=== PATIENT | male | born 1955 | race African-American/Black ===

== ENCOUNTER 2017-03-05 18:38 | Inpatient (IN) ==
[2017-03-05] MEDS ORDERED: ONDANSETRON 4 MG/2 ML VIAL IV STA (19:03)
[2017-03-05] MEDS ORDERED: PANTOPRAZOLE 40 MG VIAL IV STA (19:03)
--- NOTE | 2017-03-05 19:07 | Emergency Department Note ---
Arrival - Arrival Chief Complaint: GI Bleed/Rectal Stated Complaint: gi bleed ED Nursing Triage Note: pt reports black stools for two days. Mode of Arrival: Stretcher Limitations: No Limitations Source: Patient Time Seen by Provider: 03/05/17 19:03 - History of Present Illness HPI Narrative: This 61-year-old black male new to the community presents on transfer from [place] with 3 days of black tarry bowel movements not associated with nausea, vomiting, diarrhea, bright red blood per rectum, abdominal pain, history of peptic ulcer disease, reflux, diverticulitis, or colitis. He does not report any use of iron tablets or Pepto-Bismol recently and no complaints of chest pain or shortness of breath associated with this as well. Additionally he had markedly abnormal renal function laboratory values and denies a history of prior renal disease. Currently appears in no acute medical distress Onset (ago): day(s) (Patient presents 3 days post onset of symptoms) Allergies/Adverse Reactions: Allergies Allergy/AdvReac Type Severity Reaction Status Date / Time hydrochlorothiazide Allergy EYE Verified 03/05/17 18:49 SWELLING Review of System - Review of System 12 point system: reviewed and no additional remarkable complaints except as stated - Review of System Constitutional: Present: as per HPI Respiratory: Present: as per HPI Cardiovascular: Present: as per HPI Gastrointestinal: Present: as per HPI Genitourinary male: Present: as per HPI Medical,Surgical,& Family Hx - Medical History Cardio: History of: Hypertension Endocrine: History of: Diabetes Mellitus (NIDDM) Respiratory: History of: Pulmonary Embolism, Lung Cancer Gastrointestinal: History of: Gastrointestinal Bleed - Surgical History Thoracic Surgeries: Surgical HX of;: Lobectomy (left upper lobe) - Social History Smoking Status: Unknown if ever smoked Exam Physical Examination: GENERAL: Obese black male in no acute distress. HEENT: Normocephalic. No trauma. Moist mucous membranes. EOMI. PERRLA. ENT NML NECK: Supple. No adenopathy. CARDIAC: Regular. No murmurs. Heart rate 98 CHEST: Clear to auscultation. No respiratory distress. O2 sat 98% ABDOMEN: Soft. Nontender. Active bowel sounds. Benign abdomen at the moment EXTREMITIES: No trauma. Normal ROM. No pedal edema. SKIN: No diaphoresis. No rash. NEURO: Alert. Neuro intact. No focal deficits. Vital Signs: Vital Signs Temperature 97.4 F L 03/05/17 18:38 Pulse Rate 98 H 03/05/17 18:38 Respiratory Rate 22 03/05/17 18:38 Blood Pressure 107/54 03/05/17 18:38 O2 Sat by Pulse Oximetry 98 03/05/17 18:38 Course - Reevaluation(s) Reevaluation #1: Advised patient he would have to be admitted to evaluate his bleeding and his renal dysfunction. - Consultations Consultation #1: Discussed with the hospitalist service who will admit for further evaluation and treatment. Results - Labs CBC & BMP: 03/05/17 19:35 Labs: Lab from [facility] glucose 106, BUN 103, creatinine 3.5, sodium 143, potassium 4.8 , hematocrit 21, white blood count 8.8, normal clotting studies - Impressions EKG sinus rhythm at 94 with normal DC interval and QRS duration. Diffuse low voltage with nonspecific ST changes but no acute injury pattern. Disposition Clinical Impression: GI hemorrhage, Acute renal insufficiency Case discussed with: patient Disposition: Still a Patient Condition: Guarded Time of Disposition: 20:09
[2017-03-05] MEDS ORDERED: PANTOPRAZOLE 40 MG VIAL IV ONE (19:19)
[2017-03-05] MEDS ORDERED: ONDANSETRON 4 MG/2 ML VIAL ONE (19:19)
[2017-03-05 19:40] LABS: Basophils % 0.2 % (0.0-0.8); Eosinophils # 0.2 10*3/uL (0.0-0.87); Eosinophils % 2.2 % (0.00-10.9); Immature Granulocytes % 1.1 %; Immature Granulocytes Absolute 0.09 #; Lymphocytes # 1.7 10*3/uL (1.4-4.0); Lymphocytes % 20.5 % (21.2-54.2); Mean Corpuscular Hemoglobin 27 PG (27-34); Mean Corpuscular Volume 88.2 FL (87-102); Mean Platelet Volume 11.4 FL (9.6-12.0); Monocytes # 0.8 10*3/uL (0.11-0.8); Monocytes % 10.2 % (1.7-12.7); NRBC # 0.04 10*3/uL; Neutrophils # 5.4 10*3/uL (1.4-7.4); Neutrophils % 65.8 % (38.7-73.9); Platelet Count 159 T/CUMM (130-400); Red Blood Count 2.38 MC/CUMM (3.8-5.5); Red Cell Distribution Width 19.3 % (9.3-17.3); White Blood Count 8.2 T/CUMM (4-12)
[2017-03-05 19:49] LABS: Hemoglobin 6.5 GM/DL (14.0-18.0)
[2017-03-05] MEDS ORDERED: SODIUM CHLORIDE 0.9% 1,000 ML IV STA (19:49)
[2017-03-05 20:08] LABS: Alanine Aminotransferase 18 U/L (16-61); Albumin 3.1 G/DL (3.4-5.0); Alkaline Phosphatase 34 U/L (45-117); Aspartate Amino Transferase 16 U/L (0-37); Bilirubin,Total < 0.39 MG/DL (0.2-1.0); Blood Urea Nitrogen 89 MG/DL (7-18); Glucose 102 MG/DL (74-106); Potassium 3.9 MMOL/L (3.5-5.1); Sodium 143 MMOL/L (136-145); Total Protein 5.6 G/DL (6.4-8.3); Troponin I Only < 0.015 NG/ML (0.00-0.045)
[2017-03-05 20:13] LABS: Calcium 5.2 MG/DL (8.5-10.1)
[2017-03-05] MEDS ORDERED: CALCIUM GLUCONATE 2,000 MG in SODIUM CHLORIDE 0.9% 100 ML IV ONE (20:46)
[2017-03-05 20:48] LABS: INR 3.7; Partial Thromboplastin Time 33.8 SECS (0-40)
[2017-03-05] MEDS ORDERED: DEXTROSE 50% 25 GM/50 ML VIAL IV PRN (20:48)
[2017-03-05] MEDS ORDERED: GLUCAGON 1 MG VIAL IM PRN (20:48)
[2017-03-05 20:49] LABS: PT Patient Result 42.4 SECS
--- NOTE | 2017-03-05 20:54 | Hospitalist History & Physical ---
Assessment and Plan - Time spent with patient Time spent with patient: Greater than 30 minutes (1) Melena Status: Acute Assessment and plan: Hold the patient's anticoagulation and placement of PPI. Keep him n.p.o. and obtain H&H's every 4 hours. Consult GI Current Visit: Yes (2) Chronic anticoagulation Status: Acute Assessment and plan: This may be secondary to paroxysmal atrial fibrillation versus continuation from prior blood clot. States he has only had one blood clot total. We will have to clarify with his PCP. Current Visit: Yes (3) Symptomatic anemia Status: Acute Assessment and plan: See above. Current Visit: Yes (4) Hypocalcemia Status: Acute Assessment and plan: We will administer calcium. Current Visit: Yes (5) Acute kidney injury Status: Acute Assessment and plan: Hold nephrotoxic medications and hydrate. Obtain a renal ultrasound. Patient has azotemia this is likely secondary to AKA and melena. Current Visit: Yes (6) Diabetes mellitus Status: Acute Assessment and plan: Accu-Cheks and sliding scale insulin. Current Visit: Yes (7) Hypertension Status: Acute Assessment and plan: Holding home medications. Current Visit: Yes (8) Gout Status: Acute Assessment and plan: Continue medications. Current Visit: Yes (9) COPD (chronic obstructive pulmonary disease) Status: Acute Assessment and plan: Continue medications. Current Visit: Yes History of Present Illness Chief complaint: Melena History of present illness: Mr. Hernandez is a 61 year old male with a medical history of atrial fibrillation? , Congestive heart failure, COPD, hypertension, diabetes mellitus, morbid obesity, blood clot, gout presents with melena and symptomatic anemia. Patient states for the last 2-3 days he has been having shortness of breath and lower extremity weakness. He also endorses his stool has been black during this time. He states he has been on warfarin for about 2-3 years for a blood clot "behind the heart". He also states he has heard the term atrial fibrillation and may have it. He has not seen a physician in [place] and his last physician he seen was in [place]. The physician's name is Dr. Kerry Huang, phone number is [phone]. He states he presented to [facility] with these symptoms and was found to have anemia and was transferred to [facility] for high level of care. Denies chest pain, fever, chills, nausea, vomiting. Endorses melena denies bright blood per rectum or hematochezia. Denies dysuria hematuria. Allergies Allergy/AdvReac Type Severity Reaction Status Date / Time hydrochlorothiazide Allergy EYE Verified 03/05/17 18:49 SWELLING Medical,Surgical,& Family Hx - Medical History Cardio: History of: Hypertension Endocrine: History of: Diabetes Mellitus (NIDDM) Respiratory: History of: Pulmonary Embolism, Lung Cancer Gastrointestinal: History of: Gastrointestinal Bleed - Surgical History Thoracic Surgeries: Surgical HX of;: Lobectomy (left upper lobe) - Social History Smoking Status: Unknown if ever smoked 12 point system: reviewed and no additional remarkable complaints except as stated - Constitutional Constitutional: Present: lethargy, weakness. Absent: anorexia, chills, daytime sleepiness, excessive sweating, fatigue, fever(s), frequent falls, headache(s), increased appetite, night sweats, stops breathing during sleep, weight gain, weight loss - EENT Eyes: Absent: blurry vision, loss of vision Ears: Absent: decreased hearing, tinnitus Nose, mouth and throat: Absent: dysphagia, epistaxis, nasal congestion, neck mass, sore throat - Cardiovascular Cardiovascular: Present: dyspnea, dyspnea on exertion. Absent: chest pain at rest, chest pain with activity, claudication, diaphoresis, edema, radiating jaw , neck or arm pain, lightheadedness, orthopnea, palpitations - Respiratory Respiratory: Present: dyspnea. Absent: cough, hemoptysis, dyspnea on exertion, wheezing, snoring - Gastrointestinal Gastrointestinal: Present: melena. Absent: abdominal pain, bloating, coffee ground emesis, constipation, cramping, diarrhea, dyspepsia, dysphagia, heartburn , hematemesis, hematochezia, loose stools, nausea, odynophagia, vomiting, jaundice - Genitourinary Genitourinary: Absent: difficulty urinating, dysuria, nocturia, urinary frequency, urinary incontinence - Musculoskeletal Musculoskeletal: Absent: arthralgias - Neurological Neurological: Absent: abnormal gait, abnormal speech, behavioral changes, confusion, disequilibrium, dizziness, focal weakness, frequent falls, numbness, paresthesias, radicular pain, syncope, tremor(s) - Endocrine Endocrine: Present: fatigue. Absent: cold intolerance, heat intolerance, polyuria Exam - Constitutional Vitals: Period Temp Pulse Resp BP Sys/Thomas Pulse Ox Last 24 Hr 97.4 F 98 22 107/54 98 General appearance: no acute distress, morbidly obese - Head Head exam: Present: normocephalic, atraumatic - Eye Eye exam: Present: EOMI Pupils: Present: CHRISTIE - ENT ENT exam: Present: normal exam - Neck Neck exam: Present: normal inspection - Respiratory Respiratory exam: Present: clear to auscultation bilaterally. Absent: rhonchi, wheezes - Cardiovascular Cardiovascular exam: Present: regular rate and rhythm. Absent: gallop, rubs, systolic murmur - GI/Abdominal GI/Abdominal exam: Present: normal bowel sounds, soft. Absent: distended, firm , guarding, tenderness, rebound - Extremities Exam Extremities exam: Present: normal inspection. Absent: calf tenderness, edema Results - Labs CBC & BMP: 03/05/17 19:35 03/05/17 19:35 Lab Results: I have reviewed the past 24 hour labs
[2017-03-05] MEDS ORDERED: ALBUTEROL/IPRATROPIUM 3 ML NEB RESP TX PRN (21:01)
[2017-03-05] MEDS ORDERED: CALCIUM GLUCONATE 1,000 MG/10 ML VIAL IV ONE (21:16)
[2017-03-05] MEDS ORDERED: PANTOPRAZOLE INJ 80 MG in SODIUM CHLORIDE 0.9% 100 ML IV ONE (23:00)
[2017-03-05] MEDS ORDERED: SODIUM CHLORIDE 0.9% 250 ML IV PRN (23:53)
[2017-03-05] MEDS: INSULIN LISPRO 100 UNIT/ML SUBCUT SCH (23:56)
--- NOTE | 2017-03-06 04:46 | EKG Report ---
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
--- NOTE | 2017-03-06 07:25 | Ultrasound Report ---
Referring Physician: Eleonora Peterson MD Exam: US renal Bilateral Date: March 05, 2017 Reason: Acute kidney insufficiency Comparison: None Technique: Grayscale and color flow Doppler images of both kidneys were obtained. Ultrasound images were captured and stored. Findings: The right kidney measures 11.4 x 5.9 x 5.4 cm, and the left kidney measures 10.1 x 5.9 x 5.8 cm. No hydronephrosis is present. There is increased echogenicity of the renal parenchyma bilaterally, which can be seen in chronic medical renal disease. There is also minimal right perinephric fluid which is nonspecific. No suspicious renal lesion is identified. Impression: 1. There is increased echogenicity of the renal parenchyma bilaterally, which can be seen in chronic medical renal disease. 2. Nonspecific minimal right perinephric fluid. PROCEDURE INTERPRETED AT [facility] Final Report Signed by: Dr. Cooper Pedroza
[2017-03-06] MEDS: INSULIN LISPRO 100 UNIT/ML SUBCUT SCH ×3 (08:46→16:34)
[2017-03-06] MEDS: ALLOPURINOL 100 MG TABLET PO SCH ×2 (09:42→21:45)
[2017-03-06 10:12] LABS: Eosinophils # 0.2 10*3/uL (0.0-0.87); Eosinophils % 2.3 % (0.00-10.9); Hemoglobin 7.3 GM/DL (14.0-18.0); Immature Granulocytes % 1.1 %; Immature Granulocytes Absolute 0.09 #; Lymphocytes # 1.1 10*3/uL (1.4-4.0); Lymphocytes % 13.7 % (21.2-54.2); Mean Corpuscular HGB Conc 31.7 GM/DL (32-36); Mean Corpuscular Hemoglobin 28 PG (27-34); Mean Corpuscular Volume 89.1 FL (87-102); Mean Platelet Volume 11.2 FL (9.6-12.0); Monocytes # 0.7 10*3/uL (0.11-0.8); Monocytes % 9.3 % (1.7-12.7); NRBC # 0.02 10*3/uL; Neutrophils # 5.9 10*3/uL (1.4-7.4); Neutrophils % 73.6 % (38.7-73.9); Platelet Count 137 T/CUMM (130-400); Red Blood Count 2.58 MC/CUMM (3.8-5.5); Red Cell Distribution Width 17.8 % (9.3-17.3)
[2017-03-06 10:48] LABS: Albumin 2.8 G/DL (3.4-5.0); Bilirubin,Total 0.4 MG/DL (0.2-1.0); Osmolality,Calculated 319.7 MOS/KG (273-304); Potassium 5.2 MMOL/L (3.5-5.1)
[2017-03-06 10:57] LABS: Calcium 5.4 MG/DL (8.5-10.1)
[2017-03-06] MEDS ORDERED: CALCIUM GLUCONATE IV ONE (12:52)
[2017-03-06] MEDS ORDERED: SODIUM CHLORIDE 0.9% 250 ML IV PRN (12:52)
[2017-03-06] MEDS ORDERED: SODIUM CHLORIDE 0.9% IV ONE (12:52)
--- NOTE | 2017-03-06 14:03 | Physician Query Form ---
CLICK EDIT DOCUMENT TO SELECT QUERY ANSWER --> OK --> SIGN Tali Larson RN, CCDS Certified Clinical [employer] Services Professional W) [phone] (f) [phone] [email or web address]: Make your selection(s) from the choices in EACH section by typing an "x" and enter comments in the comment section. Please use your independent medical judgment in providing your response. This request does not imply that any particular answer is desired or expected. CLINICAL INDICATORS: (Providers should not edit this section) The medical record indicates that the patient was admitted with GI bleeding, HH of 6.5/ 21.0, history of black tarry bowel movements and the patient was given 2 units of blood. Based on the above, could you clarify which of the following conditions you are evaluating, treating, and/or monitoring? (x ) Blood loss anemia (x ) acute ( ) chronic ( ) acute on chronic ( ) Acute blood loss anemia on baseline chronic anemia ( ) Acute blood loss anemia as a complication of a procedure ( ) Iron deficiency anemia not associated with blood loss ( ) Dilutional anemia due to IV fluids ( ) Anemia due to chemotherapy ( ) Anemia due to neoplastic disease ( ) Anemia due to chronic kidney disease ( ) Pernicious anemia ( ) Aplastic anemia ( ) Hemolytic anemia ( ) immune ( ) non-immune - please specify cause: ( ) Anemia due to other condition, please specify: ( ) Clinically unable to determine COMMENTS: PLEASE ALSO DOCUMENT RESPONSE IN PROGRESS NOTES AND/OR DISCHARGE SUMMARY Use of terms such as suspected, likely, or probable (associated with a specific diagnosis that is being evaluated, monitored, or treated as if it exists) are acceptable and can be restated in the discharge summary if not ruled out. MTDD
--- NOTE | 2017-03-06 14:32 | Hospitalist Progress Note ---
Assessment and Plan - Time spent with patient Time spent with patient: Greater than 30 minutes (1) Melena Status: Acute Assessment and plan: We will transfuse 2 more units. Consult GI Current Visit: Yes (2) Chronic anticoagulation Status: Acute Assessment and plan: Obtain records from PCP as to why he is on chronic anticoagulation. Current Visit: Yes (3) Symptomatic anemia Status: Acute Assessment and plan: See above. Current Visit: Yes (4) Hypocalcemia Status: Acute Assessment and plan: We will administer calcium gluconate. Current Visit: Yes (5) Acute kidney injury Status: Acute Assessment and plan: Creatinine is worsened today will consult nephrology. Current Visit: Yes (6) Diabetes mellitus Status: Acute Assessment and plan: Accu-Cheks and sliding scale insulin. Current Visit: Yes (7) Hypertension Status: Acute Assessment and plan: Holding home medications. Current Visit: Yes (8) Gout Status: Acute Assessment and plan: Continue medications. Current Visit: Yes (9) COPD (chronic obstructive pulmonary disease) Status: Acute Assessment and plan: Continue medications. Current Visit: Yes Hospitalist: Subjective Interval history: No complaints or overnight events. 2 units have been transfused. Exam - Constitutional Vitals: Period Temp Pulse Resp BP Sys/Thomas Pulse Ox Last 24 Hr 97.4 F-98.3 F 78-112 18-24 91-136/49-77 94-99 General appearance: no acute distress, morbidly obese - Head Head exam: Present: normocephalic, atraumatic - Eye Eye exam: Present: EOMI Pupils: Present: CHRISTIE - ENT ENT exam: Present: normal exam - Neck Neck exam: Present: normal inspection - Respiratory Respiratory exam: Present: clear to auscultation bilaterally. Absent: rhonchi, wheezes - Cardiovascular Cardiovascular exam: Present: regular rate and rhythm. Absent: gallop, rubs, systolic murmur - GI/Abdominal GI/Abdominal exam: Present: normal bowel sounds, soft. Absent: distended, firm , guarding, tenderness, rebound - Extremities Exam Extremities exam: Present: normal inspection. Absent: calf tenderness, edema Results - Labs CBC & BMP: 03/06/17 09:50 03/06/17 09:50 Lab Results: I have reviewed the past 24 hour labs
--- NOTE | 2017-03-06 16:12 | Gastrointestinal Consult Note ---
Assessment and Plan (1) Acute upper GI bleeding Status: Acute Assessment and plan: This patient has a history of gastric ulcer in the past with similar presentation to what he is experiencing now. This was last seen in [place], [place] at a hospital called [facility], approximately 3 years ago. It is unclear as to why he might be having nosebleed now but his INR is still elevated at 3.7 and he is gotten 2 units of packed red blood cells last night to which she responded very minimally. He has frankly black stools on physical examination we need to start reversing his anticoagulation to help with his retention of blood. We will perform upper endoscopy tomorrow if the patient has been resuscitated more completely. I note that his calcium level is quite low and will also require attention. His potassium remains elevated but I suspect this is likely due to his renal dysfunction as well as the blood being given. Will order him some Kayexalate. Current Visit: Yes (2) History of gastric ulcer Status: Acute Assessment and plan: This patient's gastric ulcer was discovered in [place]. We do not have the biopsy results from his previous upper endoscopy, but it does not sound that he was treated for Helicobacter pylori post evaluation. We will leave him on Protonix 40 mg twice daily until we can assess this further, tomorrow morning. Current Visit: Yes (3) Acute posthemorrhagic anemia Status: Acute Assessment and plan: The patient is already received 2 units packed red blood cells improving his hematocrit from 21% to 23%, he is getting another 2 unit transfusion at this time. We will give the fresh frozen plasma as well another 2 units to help out with his INR improvement. Protonix twice daily he has been written should give him adequate acid relief even though he does not feel pain I suspect this is probably feeding into his anemia. Further recommendations post upper endoscopy tomorrow. Patient was advised of the major risks involved with such procedure including but not limited to: Bleeding, infection, perforation, cardiac and pulmonary compromise. 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 Current Visit: Yes History of Present Illness Chief complaint: Melena and anemia with hematocrit down to 21%, prior history of ulcers History of present illness: Mr. Hernandez is a 61 year old male who has a history of atrial fibrillation with what sounds like a clot in his atrial appendage and was started on Coumadin in [facility] in [facility] approximately 3 years ago. The patient has been on Coumadin since that time and unfortunately started developing black stools approximately 2-3 days ago. He has had progressive weakness but no abdominal pain, nausea/vomiting, or hematemesis/decreased appetite over these last several days. The patient had a similar presentation when he developed a ulcer approximately 3 years ago as well. He had an upper endoscope done at that time, and they were able to close the ulcer by report. This may require a Hemoclip. Patient states that he is also had a colonoscopy sometime in the last 2 years and that he was not found to have any polyps. This also was done in [place]. At this time is presenting with worsening renal failure with a creatinine that has increased from 3.2-->4.3 and a decrease in his hematocrit presenting now with an blood count of 21%, he is getting 2 units of packed red blood cells at this time. With his Coumadin his INR is up to 3.7. Presumably due to his renal dysfunction his calcium is down to 5.4. This is being replaced at this time. He does not have any other specific GI complaints. He does not have diarrhea or constipation and as mentioned previously his appetite is adequate. 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 He denies bright red blood per rectum. He does not complain of any fevers or chills. Home Medications Medication Instructions Recorded Confirmed Type Atorvastatin [Lipitor] 40 mg PO DAILY 03/06/17 03/06/17 History Calcium Carbonate Chew [Tums] 2 tablet PO BID 03/06/17 03/06/17 History Digoxin Tab [Lanoxin Tab] 0.125 mg PO DAILY 03/06/17 03/06/17 History Fluticasone/Salmeterol 250-50 1 puff INH BID 03/06/17 03/06/17 History [Advair 250-50] Furosemide 40 mg PO QAM 03/06/17 03/06/17 History Furosemide Tab [Lasix Tab] 20 mg PO QPM 03/06/17 03/06/17 History Lisinopril 40 mg PO DAILY 03/06/17 03/06/17 History Magnesium Oxide 400 mg PO DAILY 03/06/17 03/06/17 History Metformin HCl 500 mg PO BID 03/06/17 03/06/17 History Metoprolol Tartrate 25 mg PO TID 03/06/17 03/06/17 History Pantoprazole Tab [Protonix Tab] 40 mg PO DAILY 03/06/17 03/06/17 History Ranitidine Tab [Zantac Tab] 150 mg PO BID 03/06/17 03/06/17 History Terazosin [Hytrin] 2 mg PO BEDTIME 03/06/17 03/06/17 History Tiotropium Inhalation [Spiriva 18 mcg INH DAILY 03/06/17 03/06/17 History Handihaler] Warfarin Sodium 6 mg PO DIRECTED MDD see 03/06/17 03/06/17 History patient comments Allergies Allergy/AdvReac Type Severity Reaction Status Date / Time hydrochlorothiazide Allergy Intermediate EYE Verified 03/06/17 01:55 SWELLING Medical,Surgical,& Family Hx - Medical History Cardio: History of: Hypertension Neurology: No history of: Brain Aneurysm, Cerebral Hemorrhage, Cerebrovascular Accident , Cerebral Palsy, Dementia, Migraine, Multiple Sclerosis, Parkinson's Disease, Peripheral Neuropathy, Seizures, TIA, Vertigo, Neurologocal Cancer Endocrine: History of: Diabetes Mellitus (NIDDM) Respiratory: History of: Pulmonary Embolism, Lung Cancer (Pt had left upper lobe of lung removed due to CA) No history of: Obstructive Sleep Apnea, Pulmonary Hypertension, Respiratory Problems Genitourinary: No history of: Bladder Problem Gastrointestinal: History of: Gastrointestinal Bleed (Pt states that he had bleeding ulcers one time and they cauterized them) Musculoskeletal: No history of: Amputation Hematology: History of: Anemia, Bleeding Problems (Hx of bleeding ulcers) Reproductive: No histroy: Penile Disorder, Sexually Transmitted Disease, Reproductive Cancer, Reproductive Problems - Surgical History Thoracic Surgeries: Surgical HX of;: Lobectomy (left upper lobe) Patient denies;: Kidney (Renal Surgery), Lithotripsy, Nephrectomy Neurologic Surgeries: Patient denies: Brain Aneurysm, Cerebral Hemorrhage, Neurologic Surgery Abdominal Surgeries: Patient denies: Abdominal Surgery, Appendectomy, Cholecystectomy, Colonoscopy , Gastric Bypass Surgery, EGD, Hernia Repair Reproductive Surgeries: Patient denies;: Breast Surgery, Cystoscopy, Genitourinary Surgery, Prostate Surgery, Vasectomy Orthopedic Surgeries: Patient denies;: Implanted Devices, Orthopedic Surgery, Spinal Surgery, Total Hip Replacement, Total Knee Replacement - Social History Smoking Status: Former smoker Frequency of Alcohol Use: Frequently Type of Drug Use: None Review of systems: Constitutional: Denies fever, chills, nausea, and vomiting Eyes: Denies dry eyes, and scleral icterus HENT: Denies headaches Cardiovascular: Denies acute chest pain and claudication Respiratory: Denies shortness of breath, wheezing, and difficulty breathing, denies cough Gastrointestinal: As noted in the HPI Genitourinary: Denies dysuria and hematuria Neurologic: Denies vision loss, and loss of sensation Musculoskeletal: Patient does admit to some joint swelling, joint stiffness, and muscular weakness Psychiatric: Denies depression and carina symptoms Heme-Lymph: He does have easy bruising, but no lymph node enlargement or tenderness, night sweats, excessive bleeding Allergies-immunologic: Denies pruritus and rhinorrhea Exam - Constitutional Vitals: Period Temp Pulse Resp BP Sys/Thomas Pulse Ox Last 24 Hr 97.4 F-98.4 F 78-112 18-24 91-136/49-77 94-99 Exam: Constitutional: Well-developed, well-nourished, morbidly obese but alert, and in no acute distress--he looks much better than his chart would lead you to believe. Head and face: Head: Normocephalic atraumatic Eyes: Conjunctiva without injection, no gross scleral icterus, pupils equal and round bilaterally Ears: Intact to conversation in both ears Nose: External appearance is normal, nares patent Mouth: Oral mucous membranes moist without erythema dentition noted to be without erosion Neck: Normal appearance, no masses or tenderness, trachea midline Thyroid: Gland midline and appropriate size for age Respiratory: Normal respiratory effort, clear to auscultation without wheezes, rhonchi or rales Cardiovascular: Regular rate and rhythm, normal S1, S2, the exam is without rubs, murmurs or gallops. Gastrointestinal: Nontender to palpation, normal active bowel sounds, tone normal without rigidity or guarding, no masses present, no hepatomegaly, no spleen tip felt. Stool shows black guaiac positive appearance in the rectum with good tone and small internal hemorrhoids palpated on rectal examination Lymphatic: Neck without adenopathy, axilla without lymphadenopathy present Musculoskeletal: Right and left lower extremities without evidence of multiple scars and some edema Skin and subcutaneous tissue: Bilateral lower extremity scarring and edema without christine rashes or ulcerations noted, normal skin turgor, digits and nails without clubbing/cyanosis/deformities. Neurologic: The patient is grossly oriented to person place and time, cranial nerves show tongue movements are normal with normal tongue extrusion midline, light touch sensation is intact. Psychiatric: No hallucinations or delusions are present, does not appear depressed Results - Labs CBC & BMP: 03/06/17 09:50 03/06/17 09:50
[2017-03-06] MEDS ORDERED: FUROSEMIDE 20 MG/2 ML VIAL IV PRN (16:20)
[2017-03-06] MEDS ORDERED: SODIUM POLYSTYRENE SULFATE 15 GM/60 ML BOTTLE PO ONE (16:26)
[2017-03-06] MEDS: PANTOPRAZOLE 40 MG VIAL IV SCH (21:48)
[2017-03-07] MEDS: INSULIN LISPRO 100 UNIT/ML SUBCUT SCH ×5 (01:44→23:59)
[2017-03-07] MEDS ORDERED: FUROSEMIDE 20 MG/2 ML VIAL IV ONE (03:02)
[2017-03-07 06:33] LABS: Basophils % 0.2 % (0.0-0.8); Eosinophils # 0.2 10*3/uL (0.0-0.87); Eosinophils % 3.1 % (0.00-10.9); Hematocrit 24.3 VOL% (42.0-52.0); Hemoglobin 7.7 GM/DL (14.0-18.0); Immature Granulocytes % 0.7 %; Immature Granulocytes Absolute 0.04 #; Lymphocytes # 0.9 10*3/uL (1.4-4.0); Lymphocytes % 17.2 % (21.2-54.2); Mean Corpuscular HGB Conc 31.7 GM/DL (32-36); Mean Corpuscular Hemoglobin 28 PG (27-34); Mean Corpuscular Volume 89.3 FL (87-102); Mean Platelet Volume 12.5 FL (9.6-12.0); Monocytes # 0.5 10*3/uL (0.11-0.8); Monocytes % 8.4 % (1.7-12.7); NRBC # 0.02 10*3/uL; Neutrophils # 3.8 10*3/uL (1.4-7.4); Neutrophils % 70.4 % (38.7-73.9); Platelet Count 144 T/CUMM (130-400); Red Blood Count 2.72 MC/CUMM (3.8-5.5); Red Cell Distribution Width 17.1 % (9.3-17.3); White Blood Count 5.5 T/CUMM (4-12)
[2017-03-07 06:39] LABS: PT Patient Result 21.8 SECS
[2017-03-07 07:00] LABS: Magnesium 1.3 MG/DL (1.8-2.4); Osmolality,Calculated 321.1 MOS/KG (273-304); Potassium 4.6 MMOL/L (3.5-5.1)
[2017-03-07 07:01] LABS: Alanine Aminotransferase 18 U/L (16-61); Albumin 2.9 G/DL (3.4-5.0); Alkaline Phosphatase 33 U/L (45-117); Aspartate Amino Transferase 13 U/L (0-37); Bilirubin,Total < 0.39 MG/DL (0.2-1.0); Blood Urea Nitrogen 87 MG/DL (7-18); Calcium 6.1 MG/DL (8.5-10.1); Total Protein 5.3 G/DL (6.4-8.3)
[2017-03-07 07:02] LABS: Glucose 93 MG/DL (74-106); Osmolality,Calculated 320.3 MOS/KG (273-304); Potassium 4.6 MMOL/L (3.5-5.1); Sodium 148 MMOL/L (136-145)
[2017-03-07] MEDS ORDERED: SODIUM CHLORIDE 0.9% 250 ML IV PRN (09:01)
[2017-03-07] MEDS ORDERED: LIDOCAINE 1% 5 ML VIAL ONE (09:07)
[2017-03-07] MEDS ORDERED: PHENYLEPHRINE 1 MG/10 ML SYRINGE IV ONE (09:07)
[2017-03-07] MEDS ORDERED: PROPOFOL 200 MG/20 ML VIAL IV ONE (09:07)
--- NOTE | 2017-03-07 09:19 | Operative Note ---
Date of procedure: 03/07/17 Pre-op diagnosis: Prior history of gastric ulcers, patient on Eliquis, melena, anemia Post-op diagnosis: other (Mild erythema in the lower stomach otherwise normal in this patient who is on Eliquis usually. No bleeding source discovered, he will need a colonoscopy tomorrow.) Procedure: PROCEDURE: Esophagogastroduodenoscopy (EGD) with cold biopsy for pathology REFERRING PHYSICIAN: Eleonora Peterson MD INDICATIONS: This is a patient as his hematocrit is dropped down to 21% while on Eliquis. He has a prior history of gastric ulcers, he has been having melena for the last week and 1/2-2 weeks and has been feeling weak and dizzy. The prior H&P was reviewed and interrim changes are as noted: No change from GI consultation yesterday ENDOSCOPIST: Dennis Burton MD ENDOSCOPE: [employer] Video 100 System upper endoscope ASA CLASS: 4 EXAM: CV: regular rate and rhythm respiratory: Clear without wheezes abdominal: active bowel sounds MEDICATION: Per nursing anesthesia protocol, see their notes PROCEDURE: After discussion of the potential risks and benefits of upper endoscopy, the informed consent was obtained. The patient was then placed in the left lateral decubitus position where sedation was achieved as noted above. Esophageal intubation was performed without difficulty, and the endoscope was advanced through the esophagus, stomach and duodenum. A slow withdrawal was then performed with retroflexion in the stomach for careful inspection of the incisura angularis, fundus and cardia. The scope was then returned to a neutral position and withdrawn through the esophagus. The patient tolerated the procedure well and without complication. BIOPSIES: Gastric antrum/body PHOTOGRAPHS: Normal FINDINGS: Hypopharynx and Larynx: Normal Esohagoscopy Upper and middle thirds: Normal Lower third normal Esophogastric junctions: Normal, no gross evidence of Portia-James tear , esophagitis, Caballero's, stricturing or cancer Gastroscopy: Cardia/Fundus: Normal-appearing Body: Normal-appearing Antrum and pylorus very [id number] erythema, 2 biopsies obtained Duodenoscopy: Bulb normal appearing, no gross evidence of duodenitis or ulcer nor is there any heme here Second and third portions: Normal IMPRESSION: Mild erythema in the lower stomach otherwise normal in this patient who is on Eliquis usually. No bleeding source discovered, he will need a colonoscopy tomorrow. RECOMMENDATIONS: Follow up for biopsy results in 1-2 weeks by phone [phone] Continue anti-gastroesophageal reflux measures (avoid carbonated and acidic beverages, avoid eating within 2 hours of bedtime, avoid tight fitting clothing , and elevate the front bed posts 6 inches prior to sleeping. Clear liquid diet today. GoLYTELY prep tonight in preparation for colonoscopy tomorrow. Dennis Burton MD COPY TO: Eleonora Peterson MD Anesthesia: MAC Surgeon / Physician: Dennis Burton Estimated blood loss: minimal Specimens: other (Gastric antrum/body) Condition: stable Disposition: post procedure unit (G.I. Suite) Results - Labs CBC & BMP: 03/07/17 05:26 03/07/17 05:26 Discharge Plan - Discharge Medications No Action Metoprolol Tartrate 25 mg PO TID Atorvastatin [Lipitor] 40 mg PO DAILY Digoxin Tab [Lanoxin Tab] 0.125 mg PO DAILY Terazosin [Hytrin] 2 mg PO BEDTIME Calcium Carbonate Chew [Tums] 2 tablet PO BID Fluticasone/Salmeterol 250-50 [Advair 250-50] 1 puff INH BID Warfarin Sodium 6 mg PO DIRECTED MDD see patient comments Tiotropium Inhalation [Spiriva Handihaler] 18 mcg INH DAILY Lisinopril 40 mg PO DAILY Pantoprazole Tab [Protonix Tab] 40 mg PO DAILY Furosemide Tab [Lasix Tab] 20 mg PO QPM Furosemide 40 mg PO QAM Magnesium Oxide 400 mg PO DAILY Metformin HCl 500 mg PO BID Ranitidine Tab [Zantac Tab] 150 mg PO BID - Follow Up or Referral - Forms/Instructions
--- NOTE | 2017-03-07 09:26 | Gastrointestinal Progress Note ---
Assessment and Plan (1) Acute upper GI bleeding Status: Acute Assessment and plan: This patient has a history of gastric ulcer in the past with similar presentation to what he is experiencing now. This was last seen in [place], [place] at a hospital called [facility], approximately 3 years ago. It is unclear as to why he might be having nosebleed now but his INR is still elevated at 3.7 and he is gotten 2 units of packed red blood cells last night to which she responded very minimally. He has frankly black stools on physical examination we need to start reversing his anticoagulation to help with his retention of blood. We will perform upper endoscopy tomorrow if the patient has been resuscitated more completely. I note that his calcium level is quite low and will also require attention. His potassium remains elevated but I suspect this is likely due to his renal dysfunction as well as the blood being given. Will order him some Kayexalate. 03/07/17--Today's upper endoscopy was not very revealing. Mild erythema in the lower stomach otherwise normal in this patient who is on Eliquis usually. No bleeding source discovered, he will need a colonoscopy tomorrow. I would suggest getting cardiology involved in this patient as he will need a local yarn comber eventually, and they can see him while he is in-house and perhaps do an echocardiogram looking at the left atrial clot to see with the progress has been. Perhaps we can keep him off of his Eliquis at this point, considering his bleeding. Current Visit: Yes (2) History of gastric ulcer Status: Acute Assessment and plan: This patient's gastric ulcer was discovered in [place]. We do not have the biopsy results from his previous upper endoscopy, but it does not sound that he was treated for Helicobacter pylori post evaluation. We will leave him on Protonix 40 mg twice daily until we can assess this further, tomorrow morning. 03/07/17--this patient may have had Helicobacter pylori that was subsequently treated. I do not see a source for his blood loss. He may have had a Dieulafoy 's lesion, but there is no gross evidence of Portia-James tear or other source in the upper GI tract we visualized. 2 biopsies taken for Helicobacter pylori. We will proceed with a clear liquid diet today and colonoscopy prep tonight. Current Visit: Yes (3) Acute posthemorrhagic anemia Status: Acute Assessment and plan: The patient is already received 2 units packed red blood cells improving his hematocrit from 21% to 23%, he is getting another 2 unit transfusion at this time. We will give the fresh frozen plasma as well another 2 units to help out with his INR improvement. Protonix twice daily he has been written should give him adequate acid relief even though he does not feel pain I suspect this is probably feeding into his anemia. Further recommendations post upper endoscopy tomorrow. Patient was advised of the major risks involved with such procedure including but not limited to: Bleeding, infection, perforation, cardiac and pulmonary compromise. 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 03/07/17--continue to watch the patient's hematocrit as he remains off of his Eliquis. Current Visit: Yes Gastroenterology - PN: Subj Interval history: No new complaints. Exam (Progress Note) - Constitutional Vitals: Period Temp Pulse Resp BP Sys/Thomas Pulse Ox Last 24 Hr 97.8 F-98.8 F 74-95 17-22 93-138/50-86 95-99 General appearance: no acute distress - Eye Eye exam: Present: EOMI - Respiratory Respiratory exam: Present: clear to auscultation bilaterally - Cardiovascular Cardiovascular exam: Present: regular rate and rhythm - GI/Abdominal GI/Abdominal exam: Present: normal bowel sounds, soft. Absent: ascites, distended, guarding, tenderness, rebound - Extremities Exam Extremities exam: Present: normal inspection - Neurological Exam Neurological exam: Present: alert, oriented X3 - Psychiatric Psychiatric exam: Present: normal affect, normal mood - Skin Skin exam: Present: warm Results - Labs CBC & BMP: 03/07/17 05:26 03/07/17 05:26
--- NOTE | 2017-03-07 09:32 | Anesthesia Post-Op ---
Anesthesia Post OP - Post Ansesthetic Evaluation Patient seen in post op: Yes Resp: within normal limits CV: within normal limits Mental: within normal limits Temp: within normal limits [id number]: within normal limits Nausea and Vomiting: within normal limits Pain: within normal limits
[2017-03-07] MEDS ORDERED: CALCIUM GLUCONATE IV ONE (10:00)
[2017-03-07] MEDS ORDERED: MAGNESIUM SULF RIDER 4 GM in PREMIX 1 EACH IV ONE (10:00)
[2017-03-07] MEDS ORDERED: SODIUM CHLORIDE 0.9% IV ONE (10:00)
[2017-03-07] MEDS: ALLOPURINOL 100 MG TABLET PO SCH (10:13)
[2017-03-07] MEDS: BISACODYL 5 MG TABLET PO SCH ×2 (10:15→17:51)
[2017-03-07] MEDS: PANTOPRAZOLE 40 MG VIAL IV SCH (10:17)
--- NOTE | 2017-03-07 13:38 | Hospitalist Progress Note ---
Assessment and Plan - Time spent with patient Time spent with patient: Greater than 30 minutes (1) Melena Status: Acute Assessment and plan: EGD findings noted. Continue current management. Appreciate GIs assistance. Current Visit: Yes (2) Chronic anticoagulation Status: Acute Assessment and plan: Records were obtained from PCP. It appears the patient has atrial fibrillation paroxysmal in addition to a history of deep venous thrombosis. He will likely require continuation of his warfarin once stable. Current Visit: Yes (3) Symptomatic anemia Status: Acute Assessment and plan: Continue transfusions. Current Visit: Yes (4) Hypocalcemia Status: Acute Assessment and plan: We will administer calcium gluconate. Current Visit: Yes (5) Acute kidney injury Status: Acute Assessment and plan: Creatinine has improved today. Current Visit: Yes (6) Diabetes mellitus Status: Acute Assessment and plan: Accu-Cheks and sliding scale insulin. Current Visit: Yes (7) Hypertension Status: Acute Assessment and plan: Holding home medications. Current Visit: Yes (8) Gout Status: Acute Assessment and plan: Continue medications. Current Visit: Yes (9) COPD (chronic obstructive pulmonary disease) Status: Acute Assessment and plan: Continue medications. Current Visit: Yes (10) Hypomagnesemia Status: Acute Assessment and plan: Continue magnesium. Current Visit: Yes (11) Atrial fibrillation Status: Acute Assessment and plan: Paroxysmal continue anticoagulation once stable. Current Visit: Yes Hospitalist: Subjective Interval history: Patient had a scope today. Has no complaints. No overnight events. Exam - Constitutional Vitals: Period Temp Pulse Resp BP Sys/Thomas Pulse Ox Last 24 Hr 97.8 F-98.8 F 74-95 15-22 93-161/50-86 92-100 General appearance: no acute distress, morbidly obese - Head Head exam: Present: normocephalic, atraumatic - Eye Eye exam: Present: EOMI Pupils: Present: CHRISTIE - ENT ENT exam: Present: normal exam - Neck Neck exam: Present: normal inspection - Respiratory Respiratory exam: Present: clear to auscultation bilaterally. Absent: rhonchi, wheezes - Cardiovascular Cardiovascular exam: Present: regular rate and rhythm. Absent: gallop, rubs, systolic murmur - GI/Abdominal GI/Abdominal exam: Present: normal bowel sounds, soft. Absent: distended, firm , guarding, tenderness, rebound - Extremities Exam Extremities exam: Present: normal inspection. Absent: calf tenderness, edema Results - Labs CBC & BMP: 03/07/17 05:26 03/07/17 05:26 Lab Results: I have reviewed the past 24 hour labs
[2017-03-07 14:42] LABS: % Iron Saturation 10.6 % (18-50); Uric Acid 7.9 MG/DL (3.5-7.2)
[2017-03-07 14:53] LABS: 25 Hydroxy Vitamin D Total 14.2 NG/ML
--- NOTE | 2017-03-07 14:57 | Nephrology Consult Note ---
History of Present Illness Chief complaint: Pt admitted for weakness/LAINEZ. Referred for ASHVIN. History of present illness: Mr. Hernandez is a 61 year old male from [place] with PMHx Afib, on anticoagulation, GERD, hx of gastric ulcer with bleed a couple of years ago. S/P transfusion since admission. Admission creatinine 3.2, up to 4.3 yesterday after IV lasix. Today down to 2.6 for eGFR 45cc/min by CKD-EPI formula, but serum sodium up to 149 for calculated free water deficit of 5.6L. EGD without evidence of bleeding. Cscope planned for tomorrow. INR 2.0 today. Mg 1.3 despite replacement , Ca 5.2->6.0 today. Hct 21 on admit up to 24 today s/p transfusion. Was on protonix once daily at home. Lasix was prescribed 120mg qam and 80mg in afternoon. He has been taking only 40mg qam without subsequent increase in UOP. He has significant nocturia. Denies straining to urinate, intermittency, PVD, decrease in urinary stream, does admit to urgency and frequency. Home Medications Medication Instructions Recorded Confirmed Type Atorvastatin [Lipitor] 40 mg PO DAILY 03/06/17 03/06/17 History Calcium Carbonate Chew [Tums] 2 tablet PO BID 03/06/17 03/06/17 History Digoxin Tab [Lanoxin Tab] 0.125 mg PO DAILY 03/06/17 03/06/17 History Fluticasone/Salmeterol 250-50 1 puff INH BID 03/06/17 03/06/17 History [Advair 250-50] Furosemide 40 mg PO QAM 03/06/17 03/06/17 History Furosemide Tab [Lasix Tab] 20 mg PO QPM 03/06/17 03/06/17 History Lisinopril 40 mg PO DAILY 03/06/17 03/06/17 History Magnesium Oxide 400 mg PO DAILY 03/06/17 03/06/17 History Metformin HCl 500 mg PO BID 03/06/17 03/06/17 History Metoprolol Tartrate 25 mg PO TID 03/06/17 03/06/17 History Pantoprazole Tab [Protonix Tab] 40 mg PO DAILY 03/06/17 03/06/17 History Ranitidine Tab [Zantac Tab] 150 mg PO BID 03/06/17 03/06/17 History Terazosin [Hytrin] 2 mg PO BEDTIME 03/06/17 03/06/17 History Tiotropium Inhalation [Spiriva 18 mcg INH DAILY 03/06/17 03/06/17 History Handihaler] Warfarin Sodium 6 mg PO DIRECTED MDD see 03/06/17 03/06/17 History patient comments Allergies Allergy/AdvReac Type Severity Reaction Status Date / Time hydrochlorothiazide Allergy Intermediate EYE Verified 03/06/17 01:55 SWELLING Medical,Surgical,& Family Hx - Medical History Cardio: History of: Hypertension Neurology: No history of: Brain Aneurysm, Cerebral Hemorrhage, Cerebrovascular Accident , Cerebral Palsy, Dementia, Migraine, Multiple Sclerosis, Parkinson's Disease, Peripheral Neuropathy, Seizures, TIA, Vertigo, Neurologocal Cancer Endocrine: History of: Diabetes Mellitus (NIDDM) Respiratory: History of: Pulmonary Embolism, Lung Cancer (Pt had left upper lobe of lung removed due to CA) No history of: Obstructive Sleep Apnea, Pulmonary Hypertension, Respiratory Problems Genitourinary: No history of: Bladder Problem Gastrointestinal: History of: Gastrointestinal Bleed (Pt states that he had bleeding ulcers one time and they cauterized them) Musculoskeletal: No history of: Amputation Hematology: History of: Anemia, Bleeding Problems (Hx of bleeding ulcers) Reproductive: No histroy: Penile Disorder, Sexually Transmitted Disease, Reproductive Cancer, Reproductive Problems - Surgical History Thoracic Surgeries: Surgical HX of;: Lobectomy (left upper lobe) Patient denies;: Kidney (Renal Surgery), Lithotripsy, Nephrectomy Neurologic Surgeries: Patient denies: Brain Aneurysm, Cerebral Hemorrhage, Neurologic Surgery Abdominal Surgeries: Patient denies: Abdominal Surgery, Appendectomy, Cholecystectomy, Colonoscopy , Gastric Bypass Surgery, EGD, Hernia Repair Reproductive Surgeries: Patient denies;: Breast Surgery, Cystoscopy, Genitourinary Surgery, Prostate Surgery, Vasectomy Orthopedic Surgeries: Patient denies;: Implanted Devices, Orthopedic Surgery, Spinal Surgery, Total Hip Replacement, Total Knee Replacement - Social History Smoking Status: Former smoker Frequency of Alcohol Use: Frequently Type of Drug Use: None Review of Systems Genitourinary: nocturia, urinary frequency, no difficulty urinating, no dysuria , no flank pain, no hematuria, no scrotal swelling, no testicular pain, no urinary incontinence Exam - Vital Signs Vital signs: Period Temp Pulse Resp BP Sys/Thomas Pulse Ox Last 24 Hr 97.8 F-98.8 F 74-95 15-22 93-161/50-86 92-100 - General Appearance General appearance: well-developed, obese EENT: ATNC, PERRL, mucous membranes moist, hearing intact, vision intact Neck: no JVD, no thyromegaly Respiratory: no kyphosis, clear Cardiology: no murmurs, no rub, edema (trace only) Gastrointestinal: normoactive bowel sounds, no tenderness, no guarding Integumentary: no rash, warm and dry Neurologic: no focal deficit, no asterixis, alert and oriented x3 Musculoskeletal: no deformities, no erythema Psychiatric: mood/affect appropriate, cooperative Results - Labs CBC & BMP: 03/07/17 05:26 03/07/17 05:26 Assessment and Plan (1) Acute kidney injury Problem details: eGFR 45cc/min (CKD stage 3). Unknown baseline. Pt denies being told he had problems with his kidneys. Appears improved from yesterday. Status : Acute Assessment and plan: Check urinary indices. Suspect prerenal azotemia. Current Visit: Yes (2) Hypocalcemia Problem details: Commonly seen with severe Mg deficiency due to affect on PTH. 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 Status: Acute Assessment and plan: Commonly associated with PPI use. With relatively normal EGD, will stop protonix and start pepcid. Current Visit: Yes (4) Symptomatic anemia Status: Acute Current Visit: Yes (5) Gout Status: Acute Assessment and plan: Check uric acid. Change allopurinol dosing to 300mg qhs po. Current Visit: Yes (6) Hypernatremia Problem details: Manifestation of calculated free water deficit of 5.6L. Exacerbated by diuresis overnight. Status: Acute Assessment and plan: Replace free water at 50cc/hr with D5W. Correct no more than 8meq/24h. Current Visit: Yes
[2017-03-07 16:26] LABS: Creatinine,Urine Random 65 MG/DL; Total Protein,Urine Random 15 MG/DL; Urea Nitrogen, Urine Random 649 MG/DL
[2017-03-07] MEDS: IPRATROPIUM 500 MCG/2.5 ML NEB RESP TX SCH ×2 (17:17→19:08)
[2017-03-07] MEDS: DIGOXIN 0.125 MG TABLET PO SCH (17:52)
[2017-03-07] MEDS: METOPROLOL TARTRATE 25 MG TABLET PO SCH ×2 (17:54→21:09)
[2017-03-07] MEDS: CALCIUM CARBONATE CHEW 500 MG TABLET PO SCH ×2 (17:56→21:09)
[2017-03-07] MEDS ORDERED: POLYETHYLENE GLYCOL 3350/ELECTROLYTES 4,000 ML BOTTLE PO ONE (18:00)
[2017-03-07] MEDS ORDERED: MAGNESIUM CITRATE 300 ML BOTTLE PO ONE (21:00)
[2017-03-07] MEDS ORDERED: TERAZOSIN 2 MG CAPSULE PO SCH (21:00)
[2017-03-07] MEDS: FAMOTIDINE 20 MG TABLET PO SCH (21:09)
[2017-03-07] MEDS: ALLOPURINOL 300 MG TABLET PO SCH (21:09)
[2017-03-07] MEDS: FLUTICASONE/SALMETEROL 250-50 DISKUS 14 DOSE INH SCH (21:11)
[2017-03-07] MEDS: DEXTROSE 5% 1,000 ML IV SCH (21:12)
[2017-03-08] MEDS: BISACODYL 5 MG TABLET PO SCH ×2 (00:07→03:41)
[2017-03-08 04:11] LABS: Basophils % 0.2 % (0.0-0.8); Eosinophils # 0.2 10*3/uL (0.0-0.87); Eosinophils % 2.3 % (0.00-10.9); Hematocrit 29.2 VOL% (42.0-52.0); Hemoglobin 9.5 GM/DL (14.0-18.0); Immature Granulocytes % 0.5 %; Immature Granulocytes Absolute 0.04 #; Lymphocytes # 0.9 10*3/uL (1.4-4.0); Lymphocytes % 10.6 % (21.2-54.2); Mean Corpuscular HGB Conc 32.5 GM/DL (32-36); Mean Corpuscular Hemoglobin 29 PG (27-34); Mean Corpuscular Volume 89.6 FL (87-102); Mean Platelet Volume 12.4 FL (9.6-12.0); Monocytes # 0.9 10*3/uL (0.11-0.8); Monocytes % 9.7 % (1.7-12.7); Neutrophils # 6.7 10*3/uL (1.4-7.4); Neutrophils % 76.7 % (38.7-73.9); Platelet Count 153 T/CUMM (130-400); Red Blood Count 3.26 MC/CUMM (3.8-5.5); Red Cell Distribution Width 16.4 % (9.3-17.3); White Blood Count 8.8 T/CUMM (4-12)
[2017-03-08 04:24] LABS: INR 1.7; PT Patient Result 18.9 SECS
[2017-03-08 04:42] LABS: Calcium 6.7 MG/DL (8.5-10.1); Magnesium 1.9 MG/DL (1.8-2.4); Osmolality,Calculated 304.6 MOS/KG (273-304); Potassium 4.3 MMOL/L (3.5-5.1)
[2017-03-08] MEDS: IPRATROPIUM 500 MCG/2.5 ML NEB RESP TX SCH ×4 (07:15→20:16)
[2017-03-08] MEDS: DEXTROSE 5% 1,000 ML IV SCH ×3 (07:17→18:16)
[2017-03-08] MEDS: INSULIN LISPRO 100 UNIT/ML SUBCUT SCH ×4 (08:01→21:23)
[2017-03-08] MEDS ORDERED: PROPOFOL 200 MG/20 ML VIAL IV ONE (08:28)
[2017-03-08] MEDS ORDERED: LIDOCAINE 1% 5 ML VIAL ONE (08:28)
--- NOTE | 2017-03-08 08:35 | Operative Note ---
Pre-op diagnosis: Hematocrit decreased to 21%, dark stools, negative EGD Post-op diagnosis: other (Normal colonoscopy except for moderate left-sided diverticulosis and small internal hemorrhoids noted on retroflex. No bleeding source seen in the colon at all. He will need repeat colonoscopy in 10 years.) Procedure: PROCEDURE: Colonoscopy REFERRING PHYSICIAN: Eleonora Peterson MD INDICATIONS: Hematocrit is 21% now up to 29% status post transfusion, this patient has acute renal failure, dark stools previously but upper endoscopy fails to show a significant bleeding source. Colonoscopy at this time to rule out cancer and other bleeding sources the prior H&P was reviewed and interrim changes are as noted: No change from GI consultation 2 days ago. ENDOSCOPIST: Dennis Burton MD ENDOSCOPE: [employer] 100 System colonoscope COLON PREPARATION: 238 gm of PEG containing laxative and 1.9 liters of gatoraid/sports drink and dulcolax 15 mg q8 hours x 3 ASA CLASS: 4E EXAM: CV: regular rate and rhythm Respiratory: Clear without wheezes Abdominal: active bowel sounds Rectal: Good tone, no fissures or fistulas MEDICATION: Per nursing anesthesia protocol, see their notes PROCEDURE: After discussion of the potential risks and benefits of colonoscopy, the informed consent was obtained, from patient or health care surrogate. The patient was then placed in the left lateral decubitus position where sedation was achieved as noted above. Rectal examination was followed by insertion of the colonoscope. The colonoscope was passed under direct visualization to the cecum. Advancement was facilitated by insertion/withdrawl techniques, abdominal pressure and patient positioning. Once the cecal pole was reached, slow withdrawal was performed with the findings as noted below. The patient tolerated the procedure well and without complication. QUALITY OF PREP: Excellent WITHDRAWL TIME: 6 minutes 59 seconds BIOPSIES: None obtained PHOTOGRAPHS: Obtained FINDINGS: The musoca appeared normal in the following regions: rectum, sigmoid colon, descending colon, splenic flexure, transverse colon, hepatic flexure, ascending colon and cecum. Position within the cecum was confirmed by ileocecal valve, appendiceal oriface, and the convergence of folds (crows foot) . No colitis, polyp, mass or AVM was noted throughout the colon. No further bleeding source discovered, and no blood seen in the colon. Moderate left- sided diverticulosis noted. Intubation of the TI was achieved x 5 cm with normal appearence, and small internal hemorrhoids noted on retroflex. IMPRESSION: Normal colonoscopy except for moderate left-sided diverticulosis and small internal hemorrhoids noted on retroflex. No bleeding source seen in the colon at all. He will need repeat colonoscopy in 10 years. RECOMMENDATIONS: High fiber diet Repeat colonosocopy will be in 10 years. Citrucel 1 tablespoon in 12 oz juice BID: 1 bottle: :11 Follow up by phone for biopsy results in 1-2 weeks by phone Resume renal/cardiac diet. Dennis Burton MD COPY TO: Eleonora Peterson MD Anesthesia: MAC Surgeon / Physician: Dennis Burton Estimated blood loss: minimal Specimens: none sent Condition: stable Disposition: post procedure unit (G.I. Suite) Results - Labs CBC & BMP: 03/08/17 02:46 03/08/17 02:46 Discharge Plan - Discharge Medications No Action Metoprolol Tartrate 25 mg PO TID Atorvastatin [Lipitor] 40 mg PO DAILY Digoxin Tab [Lanoxin Tab] 0.125 mg PO DAILY Terazosin [Hytrin] 2 mg PO BEDTIME Calcium Carbonate Chew [Tums] 2 tablet PO BID Fluticasone/Salmeterol 250-50 [Advair 250-50] 1 puff INH BID Warfarin Sodium 6 mg PO DIRECTED MDD see patient comments Tiotropium Inhalation [Spiriva Handihaler] 18 mcg INH DAILY Lisinopril 40 mg PO DAILY Pantoprazole Tab [Protonix Tab] 40 mg PO DAILY Furosemide Tab [Lasix Tab] 20 mg PO QPM Furosemide 40 mg PO QAM Magnesium Oxide 400 mg PO DAILY Metformin HCl 500 mg PO BID Ranitidine Tab [Zantac Tab] 150 mg PO BID - Follow Up or Referral - Forms/Instructions
--- NOTE | 2017-03-08 08:36 | Gastrointestinal Progress Note ---
Assessment and Plan (1) Acute upper GI bleeding Status: Acute Assessment and plan: This patient has a history of gastric ulcer in the past with similar presentation to what he is experiencing now. This was last seen in [place], [place] at a hospital called [facility], approximately 3 years ago. It is unclear as to why he might be having nosebleed now but his INR is still elevated at 3.7 and he is gotten 2 units of packed red blood cells last night to which she responded very minimally. He has frankly black stools on physical examination we need to start reversing his anticoagulation to help with his retention of blood. We will perform upper endoscopy tomorrow if the patient has been resuscitated more completely. I note that his calcium level is quite low and will also require attention. His potassium remains elevated but I suspect this is likely due to his renal dysfunction as well as the blood being given. Will order him some Kayexalate. 03/07/17--Today's upper endoscopy was not very revealing. Mild erythema in the lower stomach otherwise normal in this patient who is on Eliquis usually. No bleeding source discovered, he will need a colonoscopy tomorrow. I would suggest getting cardiology involved in this patient as he will need a local waiter/waitress second class eventually, and they can see him while he is in-house and perhaps do an echocardiogram looking at the left atrial clot to see with the progress has been. Perhaps we can keep him off of his Eliquis at this point, considering his bleeding. 03/08/17--The patient took his prep yesterday and complete his colonoscopy today. Hematocrit is up to 29% today. His colonoscopy results are as follows: Normal colonoscopy except for moderate left-sided diverticulosis and small internal hemorrhoids noted on retroflex. No bleeding source seen in the colon at all. He will need repeat colonoscopy in 10 years. At this point is unclear where the bleeding had come from in the GI tract but again I suspect it may have been a Dieulafoy's lesion in the stomach. If he continues to have a low- grade bleed over time we may want to check his small bowel for AVMs with a capsule endoscopy as an outpatient. Current Visit: Yes (2) History of gastric ulcer Status: Acute Assessment and plan: This patient's gastric ulcer was discovered in [place]. We do not have the biopsy results from his previous upper endoscopy, but it does not sound that he was treated for Helicobacter pylori post evaluation. We will leave him on Protonix 40 mg twice daily until we can assess this further, tomorrow morning. 03/07/17--this patient may have had Helicobacter pylori that was subsequently treated. I do not see a source for his blood loss. He may have had a Dieulafoy 's lesion, but there is no gross evidence of Portia-James tear or other source in the upper GI tract we visualized. 2 biopsies taken for Helicobacter pylori. We will proceed with a clear liquid diet today and colonoscopy prep tonight. 03/08/17--no gross evidence of gastric ulcer at this time. No cause for the patient's previous melena, possible Dieulafoy's lesion versus AVM in the small bowel. If he continues to have anemia as an outpatient after treating him with acid blocking medication and improving his renal function, we may wish to perform a capsule endoscopy. Current Visit: Yes (3) Acute posthemorrhagic anemia Status: Acute Assessment and plan: The patient is already received 2 units packed red blood cells improving his hematocrit from 21% to 23%, he is getting another 2 unit transfusion at this time. We will give the fresh frozen plasma as well another 2 units to help out with his INR improvement. Protonix twice daily he has been written should give him adequate acid relief even though he does not feel pain I suspect this is probably feeding into his anemia. Further recommendations post upper endoscopy tomorrow. Patient was advised of the major risks involved with such procedure including but not limited to: Bleeding, infection, perforation, cardiac and pulmonary compromise. 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 03/07/17--continue to watch the patient's hematocrit as he remains off of his Eliquis. 03/08/17--Patient will need to be on Protonix at least once a day prior to supper and can likely be discharged at this time when you feel ready from GI standpoint at least. Again I would have him follow-up in my office in about 6 weeks and will see if his anemia warrants a evaluation of his small bowel with capsule endoscopy at that time. I am going to start him on a renal/cardiac diet. Recall that he may need to see a waiter/waitress second class in the near future considering his anticoagulation for the atrial thrombus history. Current Visit: Yes Gastroenterology - PN: Subj Interval history: No new complaints, hematocrit now up to 29%. Nephrology notes noted, appreciate their help as well. Exam (Progress Note) - Constitutional Vitals: Period Temp Pulse Resp BP Sys/Thomas Pulse Ox Last 24 Hr 97.0 F-99.0 F 69-89 15-22 118-170/55-94 90-100 General appearance: no acute distress - Eye Eye exam: Present: EOMI Pupils: Present: CHRISTIE - Respiratory Respiratory exam: Present: clear to auscultation bilaterally - GI/Abdominal GI/Abdominal exam: Present: normal bowel sounds, soft. Absent: distended, tenderness, rebound - Neurological Exam Neurological exam: Present: alert, oriented X3 - Psychiatric Psychiatric exam: Present: normal affect, normal mood - Skin Skin exam: Present: warm Results - Labs CBC & BMP: 03/08/17 02:46 03/08/17 02:46
--- NOTE | 2017-03-08 08:57 | Anesthesia Post-Op ---
Anesthesia Post OP - Post Ansesthetic Evaluation Patient seen in post op: Yes Resp: within normal limits CV: within normal limits Mental: within normal limits Temp: within normal limits [id number]: within normal limits Nausea and Vomiting: within normal limits Pain: within normal limits
--- NOTE | 2017-03-08 09:08 | Nephrology Progress Note ---
Exam (PN)-Nephrology - Vital Signs Vital signs: Period Temp Pulse Resp BP Sys/Thomas Pulse Ox Last 24 Hr 97.0 F-99.0 F 64-89 15-22 115-170/55-94 90-100 - Lab 03/08/17 02:46 03/08/17 02:46 Most recent lab results Calcium 6.7 MG/DL (8.5-10.1) L 03/08/17 02:46 Magnesium 1.9 MG/DL (1.8-2.4) 03/08/17 02:46 Assessment and Plan (1) Acute kidney injury Problem details: FeUrea c/w prerenal azotemia (30%). Hypernatremia improved with gentle IVFs overnight. Status: Acute Assessment and plan: Prerenal azotemia. Avoid overdiuresis. Continue free water replacement. Current Visit: Yes (2) Hypocalcemia Problem details: Appropriately elevated PTH for hypocalcemia. Most likely due to vit D deficiency. Status: Acute Assessment and plan: Replace vit D with ergocalciferol 50k units once weekly for 8 weeks. Goal >20 < 30. Current Visit: Yes (3) Hypomagnesemia Problem details: Improved. Status: Acute Assessment and plan: C scope unremarkable for source of bleeding. Current Visit: Yes (4) Symptomatic anemia Problem details: Fe deficiency. Goal FeSat >20%. Status: Acute Assessment and plan: Replace with iron sucrose, 200mg slow IVP daily x 5 days. Current Visit: Yes (5) Gout Problem details: Goal uric acid <6.5. Consider increasing allopurinol to 400mg daily to achieve goal serum urate. Status: Acute Assessment and plan: Check uric acid. Change allopurinol dosing to 300mg qhs po. Current Visit: Yes (6) Hypernatremia Problem details: Improved. Status: Acute Assessment and plan: Continue free water at 50cc/hr with D5W. Correct no more than 8meq/24h. Current Visit: Yes
[2017-03-08] MEDS ORDERED: ERGOCALCIFEROL 50,000 UNIT CAPSULE PO SCH (09:30)
[2017-03-08] MEDS: FLUTICASONE/SALMETEROL 250-50 DISKUS 14 DOSE INH SCH ×2 (10:20→20:35)
[2017-03-08] MEDS: FAMOTIDINE 20 MG TABLET PO SCH ×2 (10:21→20:29)
[2017-03-08] MEDS: CALCIUM CARBONATE CHEW 500 MG TABLET PO SCH ×2 (10:21→20:30)
[2017-03-08] MEDS: IRON SUCROSE 200 MG in SODIUM CHLORIDE 0.9% 100 ML IV SCH (10:21)
[2017-03-08] MEDS: METOPROLOL TARTRATE 25 MG TABLET PO SCH ×3 (10:21→20:29)
[2017-03-08] MEDS: ATORVASTATIN 40 MG TABLET PO SCH (10:21)
--- NOTE | 2017-03-08 11:20 | Pathology Report from [facility] ---
[facility] ACCESSION # : [id number] PATIENT NAME : Rebecca Hernandez ORDERING DR : Dennis Burton MD CLINICAL HX: GI bleed POST-OP DX: Same SPECIMEN INFO: OVI GROSS DESCRIPTION: Received in formalin labeled REBECCA HERNANDEZ are two fragments of hazel valladares mucosal tissue measuring 1 x 0.3 cm submitted in one cassette. DIAGNOSIS FOR REBECCA HERNANDEZ: GASTRIC ANTRAL BIOPSY: Chronic superficial gastritis. No evidence of malignancy. Special stain for H. pylori-like organisms is NEGATIVE. COLLECTED DATE: 03/07/2017 [facility] REPORT DATE: 03/08/2017 ELECTRONICALLY SIGNED BY: Brandon Casanova III, M.D. 03/08/2017 - 9:52:37 [facility]ENTERDavis
[2017-03-08] MEDS ORDERED: MAGNESIUM SULF RIDER 4 GM in PREMIX 1 EACH IV ONE (13:00)
[2017-03-08] MEDS: DIGOXIN 0.125 MG TABLET PO SCH (13:06)
[2017-03-08] MEDS ORDERED: CALCIUM GLUCONATE 2,000 MG in SODIUM CHLORIDE 0.9% 100 ML IV ONE (14:00)
--- NOTE | 2017-03-08 14:29 | Hospitalist Progress Note ---
Assessment and Plan - Time spent with patient Time spent with patient: Greater than 30 minutes (1) Melena Status: Acute Assessment and plan: EGD findings noted. Continue current management. Appreciate GIs assistance. Current Visit: Yes (2) Atrial fibrillation Status: Acute Assessment and plan: Paroxysmal atrial fibrillation. Will ask cardiology to give the recommendations regarding his GI bleed and continuation of anticoagulation. Current Visit: Yes (3) Chronic anticoagulation Status: Acute Assessment and plan: Records were obtained from PCP. It appears the patient has atrial fibrillation paroxysmal in addition to a history of deep venous thrombosis. He will likely require continuation of his warfarin once stable. Current Visit: Yes (4) Symptomatic anemia Problem details: Fe deficiency. Goal FeSat >20%. Status: Acute Assessment and plan: Resolved. Current Visit: Yes (5) Hypocalcemia Problem details: Appropriately elevated PTH for hypocalcemia. Most likely due to vit D deficiency. Status: Acute Assessment and plan: We will administer calcium gluconate. Current Visit: Yes (6) Acute kidney injury Problem details: FeUrea c/w prerenal azotemia (30%). Hypernatremia improved with gentle IVFs overnight. Status: Acute Assessment and plan: Creatinine has improved today. Current Visit: Yes (7) Hypertension Status: Acute Assessment and plan: Holding home medications. Current Visit: Yes (8) COPD (chronic obstructive pulmonary disease) Status: Acute Assessment and plan: Continue medications. Current Visit: Yes (9) Hypomagnesemia Problem details: Improved. Status: Acute Assessment and plan: Continue magnesium. Current Visit: Yes (10) Gout Problem details: Goal uric acid <6.5. Consider increasing allopurinol to 400mg daily to achieve goal serum urate. Status: Acute Assessment and plan: Continue medications. Current Visit: Yes (11) Diabetes mellitus Status: Acute Assessment and plan: Accu-Cheks and sliding scale insulin. Current Visit: Yes (12) Obstructive sleep apnea Status: Acute Assessment and plan: Restart CPAP Current Visit: Yes Hospitalist: Subjective Interval history: No complaints or overnight events. Exam - Constitutional Vitals: Period Temp Pulse Resp BP Sys/Thomas Pulse Ox Last 24 Hr 97.0 F-99.0 F 64-89 13-22 115-170/56-94 90-100 General appearance: no acute distress - Head Head exam: Present: normocephalic, atraumatic - Eye Eye exam: Present: EOMI Pupils: Present: CHRISTIE - ENT ENT exam: Present: normal exam - Neck Neck exam: Present: normal inspection - Respiratory Respiratory exam: Present: clear to auscultation bilaterally. Absent: rhonchi, wheezes - Cardiovascular Cardiovascular exam: Present: regular rate and rhythm. Absent: gallop, rubs, systolic murmur - GI/Abdominal GI/Abdominal exam: Present: normal bowel sounds, soft. Absent: distended, firm , guarding, tenderness, rebound - Extremities Exam Extremities exam: Present: normal inspection. Absent: calf tenderness, edema Results - Labs CBC & BMP: 03/08/17 02:46 03/08/17 02:46 Lab Results: I have reviewed the past 24 hour labs
[2017-03-08] MEDS: ALLOPURINOL 300 MG TABLET PO SCH (20:29)
[2017-03-09 05:43] LABS: Basophils % 0.3 % (0.0-0.8); Eosinophils # 0.3 10*3/uL (0.0-0.87); Eosinophils % 4.4 % (0.00-10.9); Hematocrit 29.5 VOL% (42.0-52.0); Hemoglobin 9.3 GM/DL (14.0-18.0); Immature Granulocytes % 0.8 %; Immature Granulocytes Absolute 0.05 #; Lymphocytes % 15.8 % (21.2-54.2); Mean Corpuscular HGB Conc 31.5 GM/DL (32-36); Mean Corpuscular Hemoglobin 29 PG (27-34); Mean Platelet Volume 12.1 FL (9.6-12.0); Monocytes # 0.8 10*3/uL (0.11-0.8); Monocytes % 12.7 % (1.7-12.7); NRBC # 0.02 10*3/uL; Neutrophils # 4.1 10*3/uL (1.4-7.4); Platelet Count 148 T/CUMM (130-400); Red Blood Count 3.24 MC/CUMM (3.8-5.5); Red Cell Distribution Width 16.7 % (9.3-17.3); White Blood Count 6.1 T/CUMM (4-12)
[2017-03-09 06:17] LABS: Calcium 6.7 MG/DL (8.5-10.1); Osmolality,Calculated 300.4 MOS/KG (273-304); Potassium 4.4 MMOL/L (3.5-5.1)
[2017-03-09] MEDS: DEXTROSE 5% 1,000 ML IV SCH (07:50)
[2017-03-09] MEDS: INSULIN LISPRO 100 UNIT/ML SUBCUT SCH ×2 (07:51→12:15)
[2017-03-09] MEDS: IPRATROPIUM 500 MCG/2.5 ML NEB RESP TX SCH ×2 (07:54→11:35)
[2017-03-09] MEDS: IRON SUCROSE 200 MG in SODIUM CHLORIDE 0.9% 100 ML IV SCH (08:24)
[2017-03-09] MEDS: FAMOTIDINE 20 MG TABLET PO SCH (08:25)
[2017-03-09] MEDS: METOPROLOL TARTRATE 25 MG TABLET PO SCH (08:25)
[2017-03-09] MEDS: FLUTICASONE/SALMETEROL 250-50 DISKUS 14 DOSE INH SCH (08:25)
[2017-03-09] MEDS: ATORVASTATIN 40 MG TABLET PO SCH (08:25)
[2017-03-09] MEDS: CALCIUM CARBONATE CHEW 500 MG TABLET PO SCH (08:25)
[2017-03-09 09:24] VITALS: BP 149/78
--- NOTE | 2017-03-09 09:51 | Nephrology Progress Note ---
Nephrology - PN: Subj Interval history: Pt being discharged today. Denies SOB/pain. Exam (PN)-Nephrology - Vital Signs Vital signs: Period Temp Pulse Resp BP Sys/Thomas Pulse Ox Last 24 Hr 98.1 F-99.8 F 69-85 16-20 104-149/58-78 91-98 - General Appearance General appearance: well-developed, obese EENT: ATNC, PERRL, mucous membranes moist, hearing intact, vision intact Neck: no JVD, no thyromegaly Respiratory: no kyphosis, no scoliosis Cardiology: no murmurs, no rub Gastrointestinal: normoactive bowel sounds, no tenderness Integumentary: no rash, warm and dry Neurologic: no focal deficit, no asterixis, alert and oriented x3 Musculoskeletal: no deformities, no erythema Psychiatric: mood/affect appropriate, cooperative - Lab 03/09/17 04:34 03/09/17 04:34 Most recent lab results Calcium 6.7 MG/DL (8.5-10.1) L 03/09/17 04:34 Magnesium 2.3 MG/DL (1.8-2.4) 03/09/17 04:34 Assessment and Plan (1) Acute kidney injury Problem details: FeUrea c/w prerenal azotemia (30%). Hypernatremia improved with gentle IVFs overnight. Status: Acute Assessment and plan: Prerenal azotemia. Proper lasix dosing should likely be 40mg po bid. Stop protonix. Continue pepcid. Follow up appt with nephrology in 4 weeks. Renal function panel and CBC, with PTH, UA at that appt. Current Visit: Yes (2) Hypocalcemia Problem details: Elevated PTH for hypocalcemia, but not as high as would be expected with calcium 5.2. Most likely due to vit D deficiency. Mag deficiency due to PPI. Stop PPI. Continue pepcid. Status: Acute Assessment and plan: Replace vit D with ergocalciferol 50k units once weekly for 8 weeks. Goal >20 < 30. Current Visit: Yes (3) Hypomagnesemia Problem details: Improved. Status: Acute Assessment and plan: C scope unremarkable for source of bleeding. Current Visit: Yes (4) Symptomatic anemia Problem details: Fe deficiency. Goal FeSat >20%. Status: Acute Assessment and plan: Replace with iron sucrose, 200mg slow IVP daily x 5 days. Current Visit: Yes (5) Gout Problem details: Goal uric acid <6.5. Consider increasing allopurinol to 400mg daily to achieve goal serum urate. Status: Acute Assessment and plan: Check uric acid. Change allopurinol dosing to 300mg qhs po. Current Visit: Yes (6) Hypernatremia Problem details: Improved. Status: Acute Assessment and plan: Continue free water at 50cc/hr with D5W. Correct no more than 8meq/24h. Current Visit: Yes
--- NOTE | 2017-03-09 10:41 | Discharge Summary ---
Hospital Course - Hospital Course Hospital Course: Mr Hernandez was admitted with symptomatic anemia and reported history of melena. He was on chronic warfarin for Afib. INR on admission was 3.7. Labs on admission revealed anemia, hypocalcemia, hypomagnesemia and acute kidney injury. Nephrotoxic medications were held. He had serial H&Hs to monitor his blood and received 8 units total of pRBCs administered during his hospitalization. He was seen by GI who performed an upper and lower endoscopy. Upper endoscopy revealed no acute lesions or obvious sources of blood loss, however there was some gastric erythema. Lower scope was unremarkable. His electrolytes were corrected and Nephrology was consulted to evaluate the patient for his ASHVIN. He was taken off his PPI, and started on H2 jonh given that PPIs are associated with magnesium wasting. Vitamin D levels were low. PTH was high at 137. By discharge, his creatinine improved to 1.6, GFR was 84. Calcium, magnesium were much improved. Hemoglobin levels were stable at 9.3. He had no recurrence of melena. Cardiology was consulted who recommended that because he has no high risk lesion identified on scope, to switch to Eliquis. Social work assisted with determining patient cost, and it was reasonable. Furthermore he was encouraged to use his CPAP at home as he refused it here. His blood pressure medications were also adjusted to include reduction in his VISHNU inhibitor dose. Furthermore his Lasix dose was reduced given he presented with acute kidney injury. By discharge he had met maximum benefit of hospitalization. I spent 42 minutes coordinating this discharge. - Time spent with patient Time with patient DS: Greater than 30 minutes Diagnosis - Discharge Diagnosis (1) Melena Status: Resolved (2) Atrial fibrillation Status: Chronic (3) Chronic anticoagulation Status: Chronic (4) Symptomatic anemia Status: Acute (5) Hypocalcemia Status: Acute (6) Acute kidney injury Status: Acute (7) Hypertension Status: Chronic (8) COPD (chronic obstructive pulmonary disease) Status: Acute (9) Hypomagnesemia Status: Acute (10) Gout Status: Acute (11) Diabetes mellitus Status: Chronic (12) Obstructive sleep apnea Status: Chronic Specialty Discharge - Follow Up or Referrals Follow up with: Juan Casillas MD [Physician] - 2 Weeks Peter Rogers MD [Physician] - 04/06/17 9:15 am Discharge Plan - Discharge Data Disposition: Disch To Home/Self Care Condition at Discharge: Stable Discharge Diet: advance to your usual diet Activity: resume usual activities as tolerated - Discharge Medications New Apixaban [Eliquis] 5 mg PO BID #60 tablet Lisinopril 5 mg PO DAILY #30 tablet Continue Metoprolol Tartrate 25 mg PO TID Atorvastatin [Lipitor] 40 mg PO DAILY Digoxin Tab [Lanoxin Tab] 0.125 mg PO DAILY Terazosin [Hytrin] 2 mg PO BEDTIME Calcium Carbonate Chew [Tums] 2 tablet PO BID Fluticasone/Salmeterol 250-50 [Advair 250-50] 1 puff INH BID Tiotropium Inhalation [Spiriva Handihaler] 18 mcg INH DAILY Furosemide Tab [Lasix Tab] 20 mg PO QPM Magnesium Oxide 400 mg PO DAILY Metformin HCl 500 mg PO BID Ranitidine Tab [Zantac Tab] 150 mg PO BID Discontinued Warfarin Sodium 6 mg PO DIRECTED MDD see patient comments Lisinopril 40 mg PO DAILY Pantoprazole Tab [Protonix Tab] 40 mg PO DAILY Furosemide 40 mg PO QAM - Follow Up or Referral Follow Up: Peter Rogers MD [Physician] - 04/06/17 9:15 am Juan Casillas MD [Physician] - 2 Weeks - Forms/Instructions Exam - Constitutional Vitals: Period Temp Pulse Resp BP Sys/Thomas Pulse Ox Last 24 Hr 98.1 F-99.8 F 69-85 16-20 104-149/58-78 91-99 General appearance: no acute distress, morbidly obese - Head Head exam: Present: normal inspection, normocephalic, atraumatic - Eye Eye exam: Present: EOMI Pupils: Present: CHRISTIE - ENT ENT exam: Present: normal exam - Neck Neck exam: Present: normal inspection - Respiratory Respiratory exam: Present: clear to auscultation bilaterally. Absent: accessory muscle use, prolonged expiratory phase, wheezes - Cardiovascular Cardiovascular exam: Present: regular rate and rhythm. Absent: bradycardia, irregular rhythm, systolic murmur - GI/Abdominal GI/Abdominal exam: Present: normal bowel sounds. Absent: ascites, hypoactive bowel sounds, tenderness - Extremities Exam Extremities exam: Present: normal inspection Discharge Results Labs on day of discharge: Labs from last 24 hours 03/09/17 03/09/17 03/09/17 07:43 04:34 04:34 WBC RBC Hgb Hct MCV MCH MCHC RDW Plt Count MPV Neut % (Auto) Lymph % (Auto) [place] % (Auto) Eos % (Auto) Baso % (Auto) Neut # (Auto) Lymph # (Auto) [place] # (Auto) Eos # (Auto) Baso # (Auto) Immature Gran % Nucleated RBC % Immature Gran # Nucleated RBCs # Sodium 147 H Potassium 4.4 Chloride 114 H Carbon Dioxide 23 Anion Gap 14.4 BUN 36 H Creatinine 1.60 H GFR Calculation 84 BUN/Creatinine Ratio 22.00 H Glucose 113 H POC Glucose 122 H Calculated Osmolality 300.4 Calcium 6.7 L Magnesium 2.3 03/09/17 03/08/17 03/08/17 04:34 21:12 16:44 WBC 6.1 D RBC 3.24 L Hgb 9.3 L Hct 29.5 L MCV 91.0 MCH 29 MCHC 31.5 L RDW 16.7 Plt Count 148 MPV 12.1 H Neut % (Auto) 66.0 Lymph % (Auto) 15.8 L [place] % (Auto) 12.7 Eos % (Auto) 4.4 Baso % (Auto) 0.3 Neut # (Auto) 4.1 Lymph # (Auto) 1.0 L [place] # (Auto) 0.8 Eos # (Auto) 0.3 Baso # (Auto) 0.0 Immature Gran % 0.8 Nucleated RBC % 0.3 Immature Gran # 0.05 Nucleated RBCs # 0.02 Sodium Potassium Chloride Carbon Dioxide Anion Gap BUN Creatinine GFR Calculation BUN/Creatinine Ratio Glucose POC Glucose 135 H 133 H Calculated Osmolality Calcium Magnesium 03/08/17 11:38 WBC RBC Hgb Hct MCV MCH MCHC RDW Plt Count MPV Neut % (Auto) Lymph % (Auto) [place] % (Auto) Eos % (Auto) Baso % (Auto) Neut # (Auto) Lymph # (Auto) [place] # (Auto) Eos # (Auto) Baso # (Auto) Immature Gran % Nucleated RBC % Immature Gran # Nucleated RBCs # Sodium Potassium Chloride Carbon Dioxide Anion Gap BUN Creatinine GFR Calculation BUN/Creatinine Ratio Glucose POC Glucose 145 H Calculated Osmolality Calcium Magnesium DS: Provider Date of admission: 03/05/17 20:42 Primary care physician: . No PCP Attending physician on admission: Eleonora Peterson MD Consults: 03/05/17 20:16 Consult to Physician [CONS] Routine Comment: melena Consulting Provider: Dennis Burton Consulting Provider Notified: Yes When should Consulting Provider be notified: Now Consult to Specialist Group: Gastroenterology When should Consulting Provider be notified: Now Person Notified: LEOBARDO Date Notified: 03/06/17 Time Notified: 08:58 03/05/17 20:17 Consult to Case Mgmt/Social Srvs [CONS] Routine Reason for Case Mgmt/Social Srvs: Rehab Consult to Occupational Therapy [CONS] Routine Reason for Occupational Therapy: Weakness Consult to Physical Therapy [CONS] Routine Reason for Physical Therapy: Weakness 03/06/17 00:33 Consult to Pastoral Services [CONS] Routine Comment: Pastoral Screen: Request Endoscopy Specialty Technician Visit Pastoral Screen Source of Request: Other Other Source Requesting: Nursing 03/06/17 14:32 Consult to Physician [CONS] Routine Comment: Acute kidney injury Consulting Provider: Peter Rogers Consulting Provider Notified: Yes When should Consulting Provider be notified: Now Consult to Specialist Group: Nephrology When should Consulting Provider be notified: Now Person Notified: LEOBARDO Date Notified: 03/07/17 Time Notified: 12:57 03/06/17 16:20 Consult to Anesthesiology [CONS] Routine Consulting Provider: Reason for Anesthesiology: Pre-op Clearance 03/08/17 14:28 Consult to Physician [CONS] Routine Comment: GI bleed, pAFIB, recommendations on cont anticoag Consulting Provider: Cardiology - [facility] Consulting Provider Notified: Yes When should Consulting Provider be notified: Now Consult to Specialist Group: Cardiology When should Consulting Provider be notified: Now Person Notified: [place] Date Notified: 03/09/17 Time Notified: 08:23 Discharging clinician: Eleonora Peterson MD Expected date of discharge: 03/09/17
--- NOTE | 2017-03-09 13:53 | Cardiology Consult Note ---
Juvencio Santiago Vanessa, RN, am scribing for, and in the presence of, Juan Casillas MD 13:51. Assessment and Plan - Time spent with patient Time spent with patient: Greater than 30 minutes (Due to assessment, planning, documentation, medication review) (1) Atrial fibrillation Status: Chronic Assessment and plan: History of what appears to be paroxysmal atrial fibrillation. EKGs this admission have been sinus rhythm. He is chronically anticoagulated most likely for stroke prevention as well as known histor of left atrial thrombus. Qualifiers: Atrial fibrillation type: paroxysmal Qualified Code(s): I48.0 - Paroxysmal atrial fibrillation (2) Chronic anticoagulation Status: Chronic Assessment and plan: Chronic anticoagulation with Coumadin in the past. He has had previous bleeding with GI ulcers since starting Coumadin, but warfarin reinitiated after resolution of ulcer via cauterization. Supratherapeutic INR on admission of 3.7. This has improved, and current INR is subtherapeutic at 1.7. (3) Melena Status: Resolved Assessment and plan: This has improved since admission and resolved. (4) Diabetes mellitus Status: Chronic Assessment and plan: Chronic. Continue as present. (5) Symptomatic anemia Problem details: Fe deficiency. Goal FeSat >20%. Status: Acute Assessment and plan: Resolved. He has required blood transfusion this admission. Hematocrit stable for the past couple days with no melena or other overt bleeding. (6) Hypertension Status: Chronic Assessment and plan: Overall, fairly well controlled considering patient's multiple other medical issues. (7) History of gastric ulcer Status: Chronic Assessment and plan: Chronic. Will defer management to primary service and gastroenterology. (8) Obstructive sleep apnea Status: Chronic Assessment and plan: Encourage use of CPAP. History of Present Illness - Data of Consult Patient: new to practice Consult date: 03/09/17 Requesting Physician: Eleonora Peterson - Consult Narrative Reason for consult: GI bleed, hx PAF with chronic anticoagulation use History of present illness: Mr. Hernandez is a 61 year old black male not routinely followed by [facility] cardiology. He is followed by a cargo and ramp services manager in his home town of [facility] , and records from that clinic have been obtained previously for review. Patient has risk factors significant for: Hypertension, diabetes, dyslipidemia, morbid obesity, and he is a former smoker. Past medical history includes paroxysmal atrial fibrillation, COPD, home oxygen use with chronic dyspnea on exertion, lung cancer, obstructive sleep apnea with CPAP, microcytic anemia, and CHF. He is chronically anticoagulated with Coumadin. Other review of outside records indicate patient has a history of DVT and has had previous atrial flutter ablation in 2013. Patient presented to [facility] from [facility] on March 05, and he was admitted to [facility] for further evaluation of melena 3 days, shortness of breath, and lower extremity weakness. He had also been noted to be anemic, and initial H&H drawn Venkata's 6.5/21.0. INR was 3.7. Since admission, he has been transfused with a total of 8 units PRBCs, and he has undergone gastroenterology workup. He has had EGD and colonoscopy per Dr. Burton. EGD was negative for acute source of bleeding. Colonoscopy was unrevealing with exception of moderate left-sided diverticulosis and some small internal hemorrhoids but no acute source of bleed.. It is noted that his endoscopy was unchanged from previous exam 2 years ago. Patient reports to 3 years ago he developed a bleeding ulcer and underwent GI workup. His melena has resolved, and his anemia is now stable with unchanged HCT for the past 2 days. INR yesterday 1.7. Patient has reached maximum hospital benefit, and he is eligible for discharge today. Cardiology is asked to see for anticoagulation recommendations as he has a history of atrial fibrillation, chronic anticoagulation, and has had acute anemia. Patient seen and examined. Upon exam, he is sitting up in chair, and is resting comfortably. He is no acute distress. No chest pain or shortness of breath. Denies recent signs or symptoms of heart failure. Blood pressure stable with systolic 120s-140s. Pulse is 70s regular by exam. Upon interviewing patient, he is a poor historian. He does tell me that he takes Coumadin for "a clot behind the heart". Further review of old records indicates patient had echocardiogram May 2014 which showed ejection fraction 65%, patent foramen ovale with [id number] shunt, and left atrial appendage clot, no valve abnormalities. EKGs obtained this have been sinus rhythm without occurrence of fibrillation, ectopy, or dysrhythmia. Admission ECG with sinus rhythm. Wall history difficult to obtain. Patient though is stable and should probably be on chronic warfarin unless she has recurrent bleeds. CC: Eleonora Peterson MD - Home Medications and Allergies Home Medications: Home Medications Medication Instructions Recorded Confirmed Type Atorvastatin [Lipitor] 40 mg PO DAILY 03/06/17 03/06/17 History Calcium Carbonate Chew [Tums] 2 tablet PO BID 03/06/17 03/06/17 History Digoxin Tab [Lanoxin Tab] 0.125 mg PO DAILY 03/06/17 03/06/17 History Fluticasone/Salmeterol 250-50 1 puff INH BID 03/06/17 03/06/17 History [Advair 250-50] Furosemide Tab [Lasix Tab] 20 mg PO QPM 03/06/17 03/06/17 History Magnesium Oxide 400 mg PO DAILY 03/06/17 03/06/17 History Metformin HCl 500 mg PO BID 03/06/17 03/06/17 History Metoprolol Tartrate 25 mg PO TID 03/06/17 03/06/17 History Ranitidine Tab [Zantac Tab] 150 mg PO BID 03/06/17 03/06/17 History Terazosin [Hytrin] 2 mg PO BEDTIME 03/06/17 03/06/17 History Tiotropium Inhalation [Spiriva 18 mcg INH DAILY 03/06/17 03/06/17 History Handihaler] Apixaban [Eliquis] 5 mg PO BID #60 tablet 03/09/17 Rx Lisinopril 5 mg PO DAILY #30 tablet 03/09/17 Rx Allergies/Adverse Reactions: Allergies Allergy/AdvReac Type Severity Reaction Status Date / Time hydrochlorothiazide Allergy Intermediate EYE Verified 03/06/17 01:55 SWELLING - Constitutional Constitutional: Absent: anorexia, chills, daytime sleepiness, fatigue, frequent falls, headache(s), weakness, weight gain, weight loss - EENT Eyes: Absent: blurry vision, loss of vision Ears: Absent: decreased hearing Nose, mouth and throat: Absent: dysphagia, nasal congestion, neck pain, sinus pressure - Cardiovascular Cardiovascular: Present: dyspnea on exertion (Chronic). Absent: chest pain at rest, chest pain with activity, claudication, diaphoresis, edema, radiating jaw , neck or arm pain, lightheadedness, orthopnea, palpitations, PND - Respiratory Respiratory: Present: dyspnea on exertion. Absent: cough, dyspnea, hemoptysis, wheezing, change in phlegm color - Gastrointestinal Gastrointestinal: Absent: abdominal pain, bloating, coffee ground emesis, constipation, diarrhea, dysphagia, hematemesis, hematochezia, melena, nausea, vomiting, jaundice - Genitourinary Genitourinary: Absent: difficulty urinating, dysuria, flank pain, hematuria, nocturia - Musculoskeletal Musculoskeletal: Present: arthralgias - Neurological Neurological: Absent: abnormal gait, abnormal speech, confusion, dizziness, syncope, tremor(s) - Psychiatric Psychiatric: Absent: anxiety, confusion, depression - Endocrine Endocrine: Absent: cold intolerance, heat intolerance - Hematologic/Lymphatic Hematologic/Lymphatic: Present: easy bruising. Absent: easy bleeding Medical,Surgical,& Family Hx - Medical History Cardio: History of: Hypertension Neurology: No history of: Brain Aneurysm, Cerebral Hemorrhage, Cerebrovascular Accident , Cerebral Palsy, Dementia, Migraine, Multiple Sclerosis, Parkinson's Disease, Peripheral Neuropathy, Seizures, TIA, Vertigo, Neurologocal Cancer Endocrine: History of: Diabetes Mellitus (NIDDM), Dyslipidemia Respiratory: History of: COPD, Pulmonary Embolism, Lung Cancer (Pt had left upper lobe of lung removed due to CA) No history of: Obstructive Sleep Apnea, Pulmonary Hypertension, Respiratory Problems Renal: History of: Renal Problems (Renal insufficiency) Genitourinary: No history of: Bladder Problem Gastrointestinal: History of: GERD, Gastrointestinal Bleed (Pt states that he had bleeding ulcers one time and they cauterized them) Musculoskeletal: No history of: Amputation Hematology: History of: Anemia, Bleeding Problems (Hx of bleeding ulcers) Reproductive: No histroy: Penile Disorder, Sexually Transmitted Disease, Reproductive Cancer, Reproductive Problems - Surgical History Thoracic Surgeries: Surgical HX of;: Lobectomy (left upper lobe) Patient denies;: Kidney (Renal Surgery), Lithotripsy, Nephrectomy Neurologic Surgeries: Patient denies: Brain Aneurysm, Cerebral Hemorrhage, Neurologic Surgery Abdominal Surgeries: Patient denies: Abdominal Surgery, Appendectomy, Cholecystectomy, Colonoscopy , Gastric Bypass Surgery, EGD, Hernia Repair Reproductive Surgeries: Patient denies;: Breast Surgery, Cystoscopy, Genitourinary Surgery, Prostate Surgery, Vasectomy Orthopedic Surgeries: Patient denies;: Implanted Devices, Orthopedic Surgery, Spinal Surgery, Total Hip Replacement, Total Knee Replacement - Social History Smoking Status: Former smoker Frequency of Alcohol Use: Frequently Type of Drug Use: None Physical Examination Vital Signs Temp Pulse Resp BP Pulse Ox 97.4 F L 98 H 22 107/54 98 03/05/17 18:38 03/05/17 18:38 03/05/17 18:38 03/05/17 18:38 03/05/17 18:38 General: Present: Other (Morbidly obese) HEENT: Present: PERRL, Normocephaly, Mucus Membranes Moist. Absent: Pallor Neck: Present: Supple Neck, Midline Trachea, No JVD/HJR, No Masses, No Bruit Cardiac: Present: Reg Rate and Rhythm. Absent: Audible Murmur, Tachycardia, Bradycardia Lungs: Present: Clear Ascult./Percussion, No Wheeze, Rales, Rhonchi Neuro: Present: Grossly Intact. Absent: Numbness, Tingling, Resting Tremor, Essential Tremor Abdomen: Present: Soft, Active Bowel Sounds, Other (Every) Skin: Present: Clear. Absent: Rash, Suspicious Lesions Extremities: Present: No Clubbing, No Cyanosis, Edema (Trace bilateral lower extremities), Capillary Refill (Normal) Result/EKG - Labs CBC & BMP: 03/09/17 04:34 03/09/17 04:34 Lab Results: I have reviewed the past 24 hour labs Labs: Laboratory Results - last 24 hr 03/08/17 03/08/17 03/08/17 11:38 16:44 21:12 WBC RBC Hgb Hct MCV MCH MCHC RDW Plt Count MPV Neut % (Auto) Lymph % (Auto) [place] % (Auto) Eos % (Auto) Baso % (Auto) Neut # (Auto) Lymph # (Auto) [place] # (Auto) Eos # (Auto) Baso # (Auto) Immature Gran % Nucleated RBC % Immature Gran # Nucleated RBCs # Sodium Potassium Chloride Carbon Dioxide Anion Gap BUN Creatinine GFR Calculation BUN/Creatinine Ratio Glucose POC Glucose 145 H 133 H 135 H Calculated Osmolality Calcium Magnesium 03/09/17 03/09/17 03/09/17 04:34 04:34 04:34 WBC 6.1 D RBC 3.24 L Hgb 9.3 L Hct 29.5 L MCV 91.0 MCH 29 MCHC 31.5 L RDW 16.7 Plt Count 148 MPV 12.1 H Neut % (Auto) 66.0 Lymph % (Auto) 15.8 L [place] % (Auto) 12.7 Eos % (Auto) 4.4 Baso % (Auto) 0.3 Neut # (Auto) 4.1 Lymph # (Auto) 1.0 L [place] # (Auto) 0.8 Eos # (Auto) 0.3 Baso # (Auto) 0.0 Immature Gran % 0.8 Nucleated RBC % 0.3 Immature Gran # 0.05 Nucleated RBCs # 0.02 Sodium 147 H Potassium 4.4 Chloride 114 H Carbon Dioxide 23 Anion Gap 14.4 BUN 36 H Creatinine 1.60 H GFR Calculation 84 BUN/Creatinine Ratio 22.00 H Glucose 113 H POC Glucose Calculated Osmolality 300.4 Calcium 6.7 L Magnesium 2.3 03/09/17 07:43 WBC RBC Hgb Hct MCV MCH MCHC RDW Plt Count MPV Neut % (Auto) Lymph % (Auto) [place] % (Auto) Eos % (Auto) Baso % (Auto) Neut # (Auto) Lymph # (Auto) [place] # (Auto) Eos # (Auto) Baso # (Auto) Immature Gran % Nucleated RBC % Immature Gran # Nucleated RBCs # Sodium Potassium Chloride Carbon Dioxide Anion Gap BUN Creatinine GFR Calculation BUN/Creatinine Ratio Glucose POC Glucose 122 H Calculated Osmolality Calcium Magnesium - Impressions Impressions: ECG with sinus rhythm. - Diagnostic Findings Procedure: Chest x-ray: image reviewed by me, report reviewed by me - EKG EKG results: interpreted by me, no acute changes EKG shows: sinus rhythm Specialty Discharge - Follow Up or Referrals Follow up with: Juan Casillas MD [Physician] - 03/23/17 10:20 am Peter Rogers MD [Physician] - 04/06/17 9:15 am IVinny John Timothy, MD, personally performed the services described in this documentation, ascribed by Terese Henning RN in my presence, and it is both accurate and complete [id number] .
--- NOTE | 2017-03-09 14:02 | Gastrointestinal Progress Note ---
Assessment and Plan (1) Acute upper GI bleeding Status: Acute Assessment and plan: This patient has a history of gastric ulcer in the past with similar presentation to what he is experiencing now. This was last seen in [place], [place] at a hospital called [facility], [place], approximately 3 years ago. It is unclear as to why he might be having nosebleed now but his INR is still elevated at 3.7 and he is gotten 2 units of packed red blood cells last night to which she responded very minimally. He has frankly black stools on physical examination we need to start reversing his anticoagulation to help with his retention of blood. We will perform upper endoscopy tomorrow if the patient has been resuscitated more completely. I note that his calcium level is quite low and will also require attention. His potassium remains elevated but I suspect this is likely due to his renal dysfunction as well as the blood being given. Will order him some Kayexalate. 03/07/17--Today's upper endoscopy was not very revealing. Mild erythema in the lower stomach otherwise normal in this patient who is on Eliquis usually. No bleeding source discovered, he will need a colonoscopy tomorrow. I would suggest getting cardiology involved in this patient as he will need a local slurry tank tender eventually, and they can see him while he is in-house and perhaps do an echocardiogram looking at the left atrial clot to see with the progress has been. Perhaps we can keep him off of his Eliquis at this point, considering his bleeding. 03/08/17--The patient took his prep yesterday and complete his colonoscopy today. Hematocrit is up to 29% today. His colonoscopy results are as follows: Normal colonoscopy except for moderate left-sided diverticulosis and small internal hemorrhoids noted on retroflex. No bleeding source seen in the colon at all. He will need repeat colonoscopy in 10 years. At this point is unclear where the bleeding had come from in the GI tract but again I suspect it may have been a Dieulafoy's lesion in the stomach. If he continues to have a low- grade bleed over time we may want to check his small bowel for AVMs with a capsule endoscopy as an outpatient. 03/09/17--Doing adequate post colonoscopy, as mentioned yesterday nothing significant found. Problems over the evening time. Hematocrit is remained stable. Further bleeding noted we can have him come back to the office in set him up for capsule endoscopy down the road. In the meantime keep an eye out for christine black stools--may consider emergency endoscopy should those resume. (2) History of gastric ulcer Status: Chronic Assessment and plan: This patient's gastric ulcer was discovered in [place]. We do not have the biopsy results from his previous upper endoscopy, but it does not sound that he was treated for Helicobacter pylori post evaluation. We will leave him on Protonix 40 mg twice daily until we can assess this further, tomorrow morning. 03/07/17--this patient may have had Helicobacter pylori that was subsequently treated. I do not see a source for his blood loss. He may have had a Dieulafoy 's lesion, but there is no gross evidence of Portia-James tear or other source in the upper GI tract we visualized. 2 biopsies taken for Helicobacter pylori. We will proceed with a clear liquid diet today and colonoscopy prep tonight. 03/08/17--no gross evidence of gastric ulcer at this time. No cause for the patient's previous melena, possible Dieulafoy's lesion versus AVM in the small bowel. If he continues to have anemia as an outpatient after treating him with acid blocking medication and improving his renal function, we may wish to perform a capsule endoscopy. 03/09/17--No gastric ulcer, maybe a single small erosion, but not enough to produce the blood loss described by this patient. (3) Acute posthemorrhagic anemia Status: Acute Assessment and plan: The patient is already received 2 units packed red blood cells improving his hematocrit from 21% to 23%, he is getting another 2 unit transfusion at this time. We will give the fresh frozen plasma as well another 2 units to help out with his INR improvement. Protonix twice daily he has been written should give him adequate acid relief even though he does not feel pain I suspect this is probably feeding into his anemia. Further recommendations post upper endoscopy tomorrow. Patient was advised of the major risks involved with such procedure including but not limited to: Bleeding, infection, perforation, cardiac and pulmonary compromise. 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 03/07/17--continue to watch the patient's hematocrit as he remains off of his Eliquis. 03/08/17--Patient will need to be on Protonix at least once a day prior to supper and can likely be discharged at this time when you feel ready from GI standpoint at least. Again I would have him follow-up in my office in about 6 weeks and will see if his anemia warrants a evaluation of his small bowel with capsule endoscopy at that time. I am going to start him on a renal/cardiac diet. Recall that he may need to see a slurry tank tender in the near future considering his anticoagulation for the atrial thrombus history. 03/09/17--Did well on solid diet, follow-up as noted above. Gastroenterology - PN: Subj Interval history: No further complaints Exam (Progress Note) - Constitutional Vitals: Period Temp Pulse Resp BP Sys/Thomas Pulse Ox Last 24 Hr 98.1 F-99.8 F 69-87 16-20 104-149/58-78 91-99 General appearance: no acute distress (Patient seen earlier in the day-- unable to get to this note until now) - Eye Eye exam: Present: EOMI - Respiratory Respiratory exam: Present: clear to auscultation bilaterally - Cardiovascular Cardiovascular exam: Present: regular rate and rhythm - GI/Abdominal GI/Abdominal exam: Present: normal bowel sounds, soft. Absent: tenderness, rebound - Extremities Exam Extremities exam: Absent: edema - Neurological Exam Neurological exam: Present: alert, oriented X3 Results - Labs CBC & BMP: 03/09/17 04:34 03/09/17 04:34 Specialty Discharge - Follow Up or Referrals Follow up with: Juan Casillas MD [Physician] - 03/23/17 10:20 am Peter Rogers MD [Physician] - 04/06/17 9:15 am
== END 2017-03-09 13:30 | disposition home or self-care (01) | DRG 254 ==
LOC: EDUNIT# → N.ED 18:38 → N.EDINP 20:42 → N.4E 22:12
PROVIDERS: ADMIT Internal Medicine; ATTEND Internal Medicine